=== PATIENT | male | born 1930 | race Caucasian/White ===

== ENCOUNTER 2016-12-30 18:40 | Emergency (ER) | payer MEDICARE, OTHER ==
--- NOTE | 2016-12-30 19:32 | EDM.PDOC ---
ED HPI GENERAL MEDICAL PROBLEM - General Chief Complaint: Genitourinary Problem Stated Complaint: BLOOD IN URINE Time Seen by Provider: 12/30/16 19:27 Source of Information: Reports: Patient, RN - History of Present Illness INITIAL COMMENTS - FREE TEXT/NARRATIVE: two episodes of painless hematuria today. no urinary hesitancy; some difficulty in stopping urine flow. - Related Data Allergies Allergy/AdvReac Type Severity Reaction Status Date / Time No Known Allergies Allergy Verified 12/30/16 19:06 Home Meds: Home Meds metFORMIN [Glucophage XR] 12/30/16 [History] Past Medical History Cardiovascular History: Reports: CAD, Stents. Denies: Arrhythmia Respiratory History: Denies: COPD Gastrointestinal History: Denies: Cirrhosis Genitourinary History: Denies: Chronic Renal Insuffiency, Dialysis Neurological History: Reports: Parkinson's. Denies: CVA Endocrine/Metabolic History: Denies: Diabetes, Type I, Diabetes, Type II Hematologic History: Denies: B12 Deficiency, Bleeding Disorder Oncologic (Cancer) History: Reports: None ED ROS GENERAL - Review of Systems Review Of Systems: See Below Constitutional: Denies: Fever, Chills, Malaise, Weakness HEENT: Denies: Dental Pain Respiratory: Denies: Shortness of Breath, Wheezing, Cough, Sputum Cardiovascular: Denies: Chest Pain GI/Abdominal: Denies: Abdominal Pain, Black Stool, Bloody Stool, Hematemesis, Hematochezia : Reports: Hematuria. Denies: Dysuria, Urinary Retention ED EXAM, RENAL/ - Physical Exam Exam: See Below General Appearance: Alert Head: Atraumatic Neck: Supple Respiratory/Chest: Lungs Clear Cardiovascular: Regular Rate, Rhythm GI/Abdominal: Soft, Non-Tender Back Exam: No: CVA Tenderness (L), CVA Tenderness (R) Comments: left parkinsonian tremor Course - Vital Signs Last Recorded V/S: Last Vital Signs Temp 97 F 12/30/16 19:05 Pulse 59 L 12/30/16 19:05 Resp 18 12/30/16 19:05 BP 129/75 12/30/16 19:05 Pulse Ox 97 12/30/16 19:05 - Orders/Labs/Meds Orders: Active Orders 24 hr Category Date Time Status Abdomen Pelvis wo Cont [CT] Stat Exams 12/30/16 21:03 Taken CULTURE URINE [RM] Stat Lab 12/30/16 19:20 Received Labs: Laboratory Tests 12/30/16 12/30/16 12/30/16 Range/Units 19:20 19:36 19:36 WBC 6.78 (4.0-11.0) K/uL RBC 3.67 L (4.50-5.90) M/uL Hgb 11.3 L (13.0-17.0) g/dL Hct 34.2 L (38.0-50.0) % MCV 93.2 (80.0-98.0) fL MCH 30.8 (27.0-32.0) pg MCHC 33.0 (31.0-37.0) g/dL RDW Std Deviation 48.0 (28.0-62.0) fl RDW Coeff of Mabel 14 (11.0-15.0) % Plt Count 282 (150-400) K/uL MPV 9.90 (7.40-12.00) fL Neut % (Auto) 67.3 (48.0-80.0) % Lymph % (Auto) 18.9 (16.0-40.0) % [place] % (Auto) 11.2 (0.0-15.0) % Eos % (Auto) 2.2 (0.0-7.0) % Baso % (Auto) 0.4 (0.0-1.5) % Neut # (Auto) 4.6 (1.4-5.7) K/uL Lymph # (Auto) 1.3 (0.6-2.4) K/uL [place] # (Auto) 0.8 (0.0-0.8) K/uL Eos # (Auto) 0.2 (0.0-0.7) K/uL Baso # (Auto) 0.0 (0.0-0.1) K/uL Nucleated RBC % 0.0 /100WBC Nucleated RBCs # 0 K/uL Sodium 139 (136-146) mmol/L Potassium 4.7 (3.5-5.1) mmol/L Chloride 108 (98-110) mmol/L Carbon Dioxide 20 L (21-31) mmol/L BUN 34 H (6.0-23.0) mg/dL Creatinine 2.3 H (0.6-1.5) mg/dL Est Cr Clr Drug Dosing TNP Estimated GFR (MDRD) 27.0 ml/min Glucose 110 (60-110) mg/dL Calcium 9.2 (8.8-10.8) mg/dL Total Bilirubin 0.3 (0.1-1.5) mg/dL AST 19 (5-40) IU/L ALT 7 L (8-54) IU/L Alkaline Phosphatase 105 (40-150) Total Protein 7.2 (6.0-8.0) g/dL Albumin 4.1 (3.4-4.8) g/dL Globulin 3.1 (2.0-3.5) g/dL Albumin/Globulin Ratio 1.3 (1.3-2.8) Urine Color RED Urine Appearance CLOUDY Urine pH 6.0 (5.0-8.0) Ur Specific [place] 1.020 (1.001-1.035) Urine Protein 100 (NEGATIVE) mg/dL Urine Glucose (UA) NEGATIVE (NEGATIVE) mg/dL Urine Ketones NEGATIVE (NEGATIVE) mg/dL Urine Occult Blood LARGE H (NEGATIVE) Urine Nitrite NEGATIVE (NEGATIVE) Urine Bilirubin NEGATIVE (NEGATIVE) Urine Urobilinogen 0.2 (<2.0) EU/dL Ur Leukocyte Esterase NEGATIVE (NEGATIVE) Urine RBC TOO NUMBEROUS TO CT (0-2/HPF) Urine WBC 1-3 (0-5/HPF) Ur Epithelial Cells RARE (NONE-FEW) Urine Bacteria 1+ H (NEGATIVE) - Re-Assessments/Exams Free Text/Narrative Re-Assessment/Exam: 12/30/16 22:08 I advised that he follow up [facility], with general surgery for colonoscopy and or proctoscopy follow up with urology tomorrow. I discussed with Dr Adam Gamboa we discussed pulmonary nodules. He is to follow up with the [facility] with copies of today's note and CT and lab reports I spoke with him regarding his asymptomatic cholelithiasis Departure - Departure Time of Disposition: 22:06 Disposition: Home, Self-Care 01 Condition: Fair Clinical Impression: Hematuria, Rectal abnormality, Prostate enlargement, Lesion of right elim ira kidney, Pulmonary nodules - Discharge Information Referrals: PCP,None [Primary Care Provider] - Forms: ED Department Discharge Additional Instructions: follow up with general surgeon for evaluation of rectal thickening within two weeks follow up with Dr Gamboa tomorrow regarding hematuria [facility] ; bring a copy of today's ER notes and lab and CT reports - My Orders Last 24 Hours: My Active Orders 12/30/16 19:20 CULTURE URINE [RM] Stat 12/30/16 21:03 Abdomen Pelvis wo Cont [CT] Stat - Assessment/Plan Last 24 Hours: My Active Orders 12/30/16 19:20 CULTURE URINE [RM] Stat 12/30/16 21:03 Abdomen Pelvis wo Cont [CT] Stat
[2016-12-30 20:07] LABS: CHLORIDE,CL 108 mmol/L (98-110); SODIUM,NA 139 mmol/L (136-146)
--- NOTE | 2016-12-31 11:54 | CT ---
EXAM DATE: 12/30/16 PATIENT'S AGE: 86 Patient: LEDY HARP Facility: [place], [place] Site . Site : 1930 Study: CT Abdomen/Pelvis [id number]/[id number] 9:27:18 PM Ordering Physician: Barb Martínez Final Report: INDICATION: Bright red stool TECHNIQUE: CT abdomen and pelvis without contrast. COMPARISON: None available FINDINGS: Lower chest: A 5 millimeter posteromedial right lower lobe nodule on image 29 and a 3 millimeter left lower lobe nodule on image 16. Mildly asymmetrical gynecomastia, right greater than left. Liver: Unremarkable. Spleen: Unremarkable. Pancreas: Unremarkable. Gallbladder and bile ducts: Cholelithiasis. Adrenal glands: Unremarkable. Kidneys: No hydronephrosis. An apparent punctate left renal parenchymal near calcific density which could be related to the wall of a lower pole cyst. Bilateral renal cysts. A 1.3 centimeter isodense right renal lower pole exophytic lesion, not well evaluated. No discrete ureteral calcifications. GI tract: No mechanical bowel obstruction. The appendix is not seen. Colonic diverticulosis without diverticulitis. Apparent irregular wall thickening along the anterior aspect of the distal rectum on images 139 -143. Vascular structures: Arthrosclerotic changes with mild eccentric right lateral infrarenal aortic aneurysm measuring up to 3.2 x 2.3 centimeters. Lymph nodes: Unremarkable. Miscellaneous: No significant free fluid or free air. Fat containing inguinal hernias, left greater than right. A 2.2 x 1.7 centimeter posterior subcutaneous low-density lesion at the level of the T12 spinous process, nonspecific. Pelvic Organs: An enlarged prostate, protruding into the bladder base. Bladder wall thickening. A small left lateral bladder wall diverticulum. Bones: Partial spinal ankylosis. IMPRESSION: Colonic diverticulosis without diverticulitis. No bowel obstruction or appendicitis. Apparent asymmetrical wall thickening in the anterior aspect of the rectum. Colonoscopic evaluation is recommended to exclude a focal lesion/ neoplasm. No obstructive uropathy. Renal cysts. An isodense right renal lesion is not well evaluated. Followup with mammography and/or postcontrast imaging. An enlarged prostate protruding into the bladder base. Bladder wall thickening is likely related to chronic outlet obstruction. Correlate with urinalysis to exclude superimposed cystitis. Small pulmonary nodules. If there are risk factors, or if otherwise clinically indicated, followup should be obtained. Dictated by Maynor Wang MD @ 12/30/2016 9:47:35 PM Dictated by: Maynor Wang MD @ 12/30/2016 21:47:52 (Electronic Signature) Report Signed by Proxy. CHITRA
== END 2016-12-30 22:20 | disposition home or self-care (01) ==
LOC: MW.ED 18:40
DX: N40.1 Benign prostatic hyperplasia with lower urinary tract symptoms (principal); R31.9 Hematuria, unspecified; Q43.9 Congenital malformation of intestine, unspecified; N28.9 Disorder of kidney and ureter, unspecified; R91.1 Solitary pulmonary nodule; Z79.84 Long term (current) use of oral hypoglycemic drugs
CPT/HCPCS: 36415; 74176; 74176-26; 80053; 81001; 85025; 87086; 99284; 99284-25

== ENCOUNTER 2017-03-06 16:10 | Inpatient (IN) | payer MEDICARE, OTHER ==
[2017-03-06] MEDS ORDERED: Sodium Chloride 0.9% 10 ML Syringe FLUSH PRN (16:28)
[2017-03-06] MEDS ORDERED: Sodium Chloride 0.9% 1,000 ML IV ONE (16:28)
[2017-03-06] MEDS ORDERED: Sodium Chloride 0.9% 2.5 ML Syringe FLUSH PRN (16:28)
--- NOTE | 2017-03-06 16:33 | EDM.PDOC ---
ED HPI GENERAL MEDICAL PROBLEM - General Chief Complaint: Cardiovascular Problem Stated Complaint: weakness Time Seen by Provider: 03/06/17 16:25 - History of Present Illness INITIAL COMMENTS - FREE TEXT/NARRATIVE: HISTORY AND PHYSICAL: History of present illness: Patient is an 87-year-old male who follows at the [place] [facility] and has a history of hypertension diabetes and a CABG in the past and presents after having a near syncopal event while at the ice cream shop at [facility]. He does not reside there and in fact that he did feel very good earlier but he wanted to visit his friend so he went over. He said that he was feeling generalized weakness and run down but no specific pain earlier today and he has had no recent fever chills chest pain shortness of breath URI symptomatology abdominal pain vomiting or diarrhea. The patient tells nursing that he has had some black stools recently which he did not admit to me. Patient says he is eating and drinking normally. Patient denies any current pain of any sort including abdominal pain chest pain extremity pain and has no head neck or back pain. He did not pass out or blackout with these events and is not dizzy or lightheaded. On arrival here via EMS he was feeling back to his baseline except for generalized weakness again. We obtained the medical list of medications from the [place] clinic may do include medications for hypertension his tremor of his left hand he is on Plavix is on cholesterol medication thyroid medication and oral hypoglycemics Review of systems: As per history of present illness and below otherwise all systems reviewed and negative. Past medical history: As per history of present illness and as reviewed below otherwise noncontributory. Surgical history: As per history of present illness and as reviewed below otherwise noncontributory. Social history: No reported history of drug or alcohol abuse. Family history: As per history of present illness and as reviewed below otherwise noncontributory. Physical exam: Gen.: Well-developed well-nourished man who is speaking clearly and easily in the ED and mentating appropriately. Vital signs have been reviewed by me including his hypotension. He is not diaphoretic but he overall looks very pale. HEENT: Atraumatic, normocephalic, pupils reactive, negative for scleral icterus , but the conjunctiva are slightly pale and the mucous membranes are tacky throat clear, neck supple, nontender, trachea midline. Lungs: Clear to auscultation, breath sounds equal bilaterally, chest nontender. No worker breathing Heart: S1S2, regular rhythm and tachycardic rate on my evaluation, negative for clicks, rubs, or JVD. Abdomen: Soft, nondistended, nontender. Negative for masses or hepatosplenomegaly. Negative for costovertebral tenderness. Pelvis: Stable nontender. Genitourinary: Deferred. Rectal: Normal tone no masses and there is brown stool in the vault which is Hemoccult positive and no gross blood Extremities: Atraumatic, negative for cords or calf pain. Neurovascular unremarkable. No pedal edema or leg asymmetry and patient has full range of motion without defects or deficits Neuro: Awake, alert, oriented. Cranial nerves II through XII unremarkable. Cerebellum unremarkable. Motor and sensory unremarkable throughout. Exam nonfocal. Patient is noted to have a fine tremor of the left thumb and index finger which she says is old Skin: Globally pale but no diaphoresis skin rashes or lesions Diagnostics: EKG CBC CMP INR troponin influenza swab UA urine culture if indicated CT scan of the head one view chest x-ray Therapeutics: IV O2 monitor IV fluids and Protonix bolus and drip Patient is unsure of his med list so we will attempt to get that from the [place] [facility]. Patient says he does take some kind of blood thinner but it is not Coumadin She told nursing that he was having black stools episodically over the last few days and when I asked him about this he said that this is true and that he had very black stool yesterday not this morning. He has never had any GI history like this. On my evaluation it is as above with brown stool which is Hemoccult positive 1745: Repeat blood pressure is 96/55 and heart rate is 111 and patient overall feels significantly improved. He still continues to have no complaints of chest pain shortness of breath abdominal pain or neurosensory changes. His labs from today have been compared to those performed December 30 and his hemoglobin today is 10.4 compared to the hemoglobin of 11.3 in December and his BUN and creatinine are increased at the BUN of 54 today compared to 34 and December and 2.7 as compared to 2.3 in December. I will discuss this case with Dr. Maxwell and plan for admission as near syncope with hypotension/tachycardia and history of black stools with probable upper GI bleed. His elevated BUN as well as potassium would be indicative of a recent GI bleed. 180: Case was discussed with our hospitalist Dr. Maxwell who agrees with Protonix bolus and drip and telemetry admission. He is aware that we are currently awaiting the results of the CT scan chest x-ray and the patient is not given a urine sample and he is also aware of her his most recent vital signs. I will discuss all testing results with the patient and family at bedside Impression: Near syncopal event, history of black stools rule out GI bleed, hypotension and tachycardia improving Definitive disposition and diagnosis as appropriate pending reevaluation and review of above. - Related Data Allergies Allergy/AdvReac Type Severity Reaction Status Date / Time No Known Allergies Allergy Verified 03/06/17 16:22 Home Meds: Home Meds Atenolol 25 mg PO DAILY 03/06/17 [History] Carbidopa/Levodopa [Carbidopa-Levodopa 25-100 Tab] 1 tab PO QID 03/06/17 [ History] Carboxymethylcell/Hypromellose [[facility] Lubricant Gel Eye Drops] 1 drop OP QID PRN 03/06/17 [History] Citalopram [Celexa] 20 mg PO DAILY 03/06/17 [History] Clopidogrel [Plavix] 75 mg PO DAILY 03/06/17 [History] Fish Oil/[place]-3 Fatty Acids [Fish Oil] 1 gm PO BID 03/06/17 [History] Gemfibrozil 600 mg PO BID 03/06/17 [History] Hydrochlorothiazide 25 mg PO DAILY 03/06/17 [History] Levothyroxine 25 mcg PO ACBREAKFAST 03/06/17 [History] Losartan [Cozaar] 25 mg PO DAILY 03/06/17 [History] Methylcellulose [Fiber] 500 mg PO DAILY 03/06/17 [History] Nitroglycerin 0.4 mg SL Q5M PRN MDD 3 03/06/17 [History] Pantoprazole [ProTONIX] 40 mg PO ACBREAKFAST 03/06/17 [History] Potassium Chloride [Klor-Con M20] 20 meq PO DAILY 03/06/17 [History] atorvaSTATin [Lipitor] 40 mg PO BEDTIME 03/06/17 [History] metFORMIN HCl [Metformin HCl ER] 500 mg PO BID 03/06/17 [History] Past Medical History - Past Health History Medical/Surgical History: Denies Medical/Surgical History HEENT History: Reports: Impaired Vision Other HEENT History: wears glasses Cardiovascular History: Reports: CAD, Stents Neurological History: Reports: Parkinson's Endocrine/Metabolic History: Reports: Diabetes, Type II Oncologic (Cancer) History: Reports: None Social & Family History - Family History Family Medical History: Noncontributory - Tobacco Use Smoking Status *Q: Never Smoker - Recreational Drug Use Recreational Drug Use: No ED ROS GENERAL - Review of Systems Review Of Systems: ROS reveals no pertinent complaints other than HPI. ED EXAM, GENERAL - Physical Exam Exam: See Below (See dictation) Course - Vital Signs Last Recorded V/S: Last Vital Signs Temp 37.7 C 03/06/17 16:22 Pulse 116 H 03/06/17 16:22 Resp 18 03/06/17 16:22 BP 83/50 L 03/06/17 16:22 Pulse Ox 96 03/06/17 16:22 - Orders/Labs/Meds Orders: Active Orders 24 hr Category Date Time Status Patient Status [ADT] Stat ADT 03/06/17 18:04 Ordered Blood Glucose Check, Bedside [RC] ONETIME Care 03/06/17 16:27 Active Cardiac Monitoring [RC] . DIRECTED Care 03/06/17 16:27 Active EKG Documentation Completion [RC] STAT Care 03/06/17 16:27 Active Oxygen Therapy, ED [RC] ASDIRECTED Care 03/06/17 16:27 Active Pulse Oximetry [RC] ASDIRECTED Care 03/06/17 16:27 Active Chest 1V Frontal [CR] Stat Exams 03/06/17 16:28 Taken Head wo Cont [CT] Stat Exams 03/06/17 16:28 Taken TYPE AND SCREEN [BBK] Stat Lab 03/06/17 16:49 Received UA W/MICROSCOPIC [URIN] Stat Lab 03/06/17 16:27 Uncollected Pantoprazole [ProTONIX IV] 80 mg Med 03/06/17 18:15 Active Sodium Chloride 0.9% [Normal Saline] 100 ml IV .Continuous Sodium Chloride 0.9% [Saline Flush] Med 03/06/17 16:28 Active 10 ml FLUSH ASDIRECTED PRN Sodium Chloride 0.9% [Saline Flush] Med 01/04/18 16:28 Active 2.5 ml FLUSH ASDIRECTED PRN Saline Lock Insert [OM.PC] Stat Oth 03/06/17 16:27 Ordered Medication Orders Pantoprazole Sodium 80 mg/ (Sodium Chloride) 100 mls @ 10 mls/hr IV .Continuous ROBERT Sodium Chloride (Saline Flush) 10 ml FLUSH ASDIRECTED PRN PRN Reason: Keep Vein Open Sodium Chloride (Saline Flush) 2.5 ml FLUSH ASDIRECTED PRN PRN Reason: Keep Vein Open Labs: Laboratory Tests 03/06/17 03/06/17 03/06/17 Range/Units 16:49 16:49 16:49 WBC 7.90 (4.0-11.0) K/uL RBC 3.35 L (4.50-5.90) M/uL Hgb 10.4 L (13.0-17.0) g/dL Hct 31.9 L (38.0-50.0) % MCV 95.2 (80.0-98.0) fL MCH 31.0 (27.0-32.0) pg MCHC 32.6 (31.0-37.0) g/dL RDW Std Deviation 48.5 (28.0-62.0) fl RDW Coeff of Mabel 14 (11.0-15.0) % Plt Count 260 (150-400) K/uL MPV 9.90 (7.40-12.00) fL Neut % (Auto) 68.7 (48.0-80.0) % Lymph % (Auto) 18.9 (16.0-40.0) % [place] % (Auto) 11.1 (0.0-15.0) % Eos % (Auto) 1.0 (0.0-7.0) % Baso % (Auto) 0.3 (0.0-1.5) % Neut # (Auto) 5.4 (1.4-5.7) K/uL Lymph # (Auto) 1.5 (0.6-2.4) K/uL [place] # (Auto) 0.9 H (0.0-0.8) K/uL Eos # (Auto) 0.1 (0.0-0.7) K/uL Baso # (Auto) 0.0 (0.0-0.1) K/uL Nucleated RBC % 0.0 /100WBC Nucleated RBCs # 0 K/uL INR 1.02 (0.86-1.11) Sodium 138 (136-146) mmol/L Potassium 5.8 H (3.5-5.1) mmol/L Chloride 114 H (98-110) mmol/L Carbon Dioxide 14 L (21-31) mmol/L BUN 54 H (6.0-23.0) mg/dL Creatinine 2.7 H (0.6-1.5) mg/dL Est Cr Clr Drug Dosing 20.14 mL/min Estimated GFR (MDRD) 22.4 ml/min Glucose 106 (60-110) mg/dL Calcium 8.2 L (8.8-10.8) mg/dL Total Bilirubin 0.3 (0.1-1.5) mg/dL AST 13 (5-40) IU/L ALT < 6 L (8-54) IU/L Alkaline Phosphatase 97 (40-150) Troponin I < 0.10 (0.0-0.29) NG/ML Total Protein 6.2 (6.0-8.0) g/dL Albumin 3.8 (3.4-4.8) g/dL Globulin 2.4 (2.0-3.5) g/dL Albumin/Globulin Ratio 1.6 (1.3-2.8) Meds: Medications Generic Name Dose Route Start Last Admin Trade Name Freq PRN Reason Stop Dose Admin Pantoprazole Sodium 80 mg/ 100 mls @ 10 mls/hr 03/06/17 18:15 Sodium Chloride IV .Continuous ROBERT Sodium Chloride 10 ml 03/06/17 16:28 Saline Flush FLUSH ASDIRECTED PRN Keep Vein Open Sodium Chloride 2.5 ml 03/06/17 16:28 Saline Flush FLUSH ASDIRECTED PRN Keep Vein Open Discontinued Medications Generic Name Dose Route Start Last Admin Trade Name Freq PRN Reason Stop Dose Admin Sodium Chloride 1,000 mls @ 999 mls/hr 03/06/17 16:28 03/06/17 16:15 Normal Saline IV 03/06/17 17:28 999 mls/hr STAT ONE Administration Pantoprazole Sodium 80 mg 03/06/17 17:42 Protonix Iv IVPUSH 03/06/17 17:43 .BOLUS ONE Departure - Departure Time of Disposition: 18:07 Disposition: Admitted As Inpatient 65 Condition: Good Clinical Impression: Near syncope, Upper GI bleed Hypotension Qualifiers: Hypotension type: unspecified hypotension type Qualified Code(s): I95.9 - Hypotension, unspecified Referrals: PCP,None [Primary Care Provider] - Forms: ED Department Discharge - My Orders Last 24 Hours: My Active Orders 03/06/17 16:27 Blood Glucose Check, Bedside [RC] ONETIME Cardiac Monitoring [RC] . DIRECTED EKG Documentation Completion [RC] STAT Oxygen Therapy, ED [RC] ASDIRECTED Pulse Oximetry [RC] ASDIRECTED UA W/MICROSCOPIC [URIN] Stat Saline Lock Insert [OM.PC] Stat 03/06/17 16:28 Chest 1V Frontal [CR] Stat Head wo Cont [CT] Stat Sodium Chloride 0.9% [Saline Flush] 10 ml FLUSH ASDIRECTED PRN Sodium Chloride 0.9% [Saline Flush] 2.5 ml FLUSH ASDIRECTED PRN 03/06/17 16:49 TYPE AND SCREEN [BBK] Stat 03/06/17 18:04 Patient Status [ADT] Stat 03/06/17 18:15 Pantoprazole [ProTONIX IV] 80 mg Sodium Chloride 0.9% [Normal Saline] 100 ml IV .Continuous - Assessment/Plan Last 24 Hours: My Active Orders 03/06/17 16:27 Blood Glucose Check, Bedside [RC] ONETIME Cardiac Monitoring [RC] . DIRECTED EKG Documentation Completion [RC] STAT Oxygen Therapy, ED [RC] ASDIRECTED Pulse Oximetry [RC] ASDIRECTED UA W/MICROSCOPIC [URIN] Stat Saline Lock Insert [OM.PC] Stat 03/06/17 16:28 Chest 1V Frontal [CR] Stat Head wo Cont [CT] Stat Sodium Chloride 0.9% [Saline Flush] 10 ml FLUSH ASDIRECTED PRN Sodium Chloride 0.9% [Saline Flush] 2.5 ml FLUSH ASDIRECTED PRN 03/06/17 16:49 TYPE AND SCREEN [BBK] Stat 03/06/17 18:04 Patient Status [ADT] Stat 03/06/17 18:15 Pantoprazole [ProTONIX IV] 80 mg Sodium Chloride 0.9% [Normal Saline] 100 ml IV .Continuous
[2017-03-06 17:25] LABS: CHLORIDE,CL 114 mmol/L (98-110); SODIUM,NA 138 mmol/L (136-146)
[2017-03-06] MEDS ORDERED: Pantoprazole 40 MG Vial IVPUSH ONE (17:42)
[2017-03-06] MEDS: Pantoprazole 80 MG in Sodium Chloride 0.9% 100 ML IV SCH (19:48)
[2017-03-06] MEDS ORDERED: Ondansetron 4 MG/2 ML SDV IVPUSH PRN (19:49)
--- NOTE | 2017-03-06 19:58 | PCM.HP ---
H&P History of Present Illness - General Admit Problem/Dx: Admission Diagnosis/Problem Admission Diagnosis/Problem Syncope - History of Present Illness Initial Comments - Free Text/Narative: 87 yo male with pmh of DM, CAD, CABG who presents to the ED with complaint of dizziness and near syncopy while at the ice cream shop at [facility]. He reports having black stools earlier this week. He denies any fevers, chills , shortness of breath, or chest pain. In the ED he was noted to have HR of 111 in sinus tach and BP of 96/95. He was given IV fluids and started on a protonix drip. - Related Data Allergies/Adverse Reactions: Allergies Allergy/AdvReac Type Severity Reaction Status Date / Time No Known Allergies Allergy Verified 03/06/17 16:22 Home Medications: Home Meds Atenolol 25 mg PO DAILY 03/06/17 [History] Carbidopa/Levodopa [Carbidopa-Levodopa 25-100 Tab] 1 tab PO QID 03/06/17 [ History] Carboxymethylcell/Hypromellose [[facility] Lubricant Gel Eye Drops] 1 drop OP QID PRN 03/06/17 [History] Citalopram [Celexa] 20 mg PO DAILY 03/06/17 [History] Clopidogrel [Plavix] 75 mg PO DAILY 03/06/17 [History] Fish Oil/[place]-3 Fatty Acids [Fish Oil] 1 gm PO BID 03/06/17 [History] Gemfibrozil 600 mg PO BID 03/06/17 [History] Hydrochlorothiazide 25 mg PO DAILY 03/06/17 [History] Levothyroxine 25 mcg PO ACBREAKFAST 03/06/17 [History] Losartan [Cozaar] 25 mg PO DAILY 03/06/17 [History] Methylcellulose [Fiber] 500 mg PO DAILY 03/06/17 [History] Nitroglycerin 0.4 mg SL Q5M PRN MDD 3 03/06/17 [History] Pantoprazole [ProTONIX] 40 mg PO ACBREAKFAST 03/06/17 [History] Potassium Chloride [Klor-Con M20] 20 meq PO DAILY 03/06/17 [History] atorvaSTATin [Lipitor] 40 mg PO BEDTIME 03/06/17 [History] metFORMIN HCl [Metformin HCl ER] 500 mg PO BID 03/06/17 [History] Past Medical History - Past Health History Medical/Surgical History: Denies Medical/Surgical History HEENT History: Reports: Impaired Vision Other HEENT History: wears glasses Cardiovascular History: Reports: CAD, Stents Neurological History: Reports: Parkinson's Endocrine/Metabolic History: Reports: Diabetes, Type II Oncologic (Cancer) History: Reports: None Social & Family History - Family History Family Medical History: Noncontributory - Tobacco Use Smoking Status *Q: Never Smoker - Recreational Drug Use Recreational Drug Use: No H&P Review of Systems - Review of Systems: Review Of Systems: ROS reveals no pertinent complaints other than HPI. Exam - Exam Exam: See Below - Vital Signs Vital Signs: Last Vital Signs Temp 37.7 C 03/06/17 16:22 Pulse 113 H 03/06/17 18:30 Resp 18 03/06/17 17:00 BP 96/65 03/06/17 18:30 Pulse Ox 96 03/06/17 17:45 Weight: 83.915 kg - Exam General: Alert, Oriented HEENT: Mucosa Moist & Odin Lungs: Clear to Auscultation, Normal Respiratory Effort Cardiovascular: Regular Rhythm, Tachycardia GI/Abdominal Exam: Soft, Non-Tender Extremities: Non-Tender, No Pedal Edema Skin: Warm, Dry, Intact - Patient Data Lab Results Last 24 hrs: Laboratory Results - last 24 hr 03/06/17 03/06/17 03/06/17 Range/Units 16:49 16:49 16:49 WBC 7.90 (4.0-11.0) K/uL RBC 3.35 L (4.50-5.90) M/uL Hgb 10.4 L (13.0-17.0) g/dL Hct 31.9 L (38.0-50.0) % MCV 95.2 (80.0-98.0) fL MCH 31.0 (27.0-32.0) pg MCHC 32.6 (31.0-37.0) g/dL RDW Std Deviation 48.5 (28.0-62.0) fl RDW Coeff of Mabel 14 (11.0-15.0) % Plt Count 260 (150-400) K/uL MPV 9.90 (7.40-12.00) fL Neut % (Auto) 68.7 (48.0-80.0) % Lymph % (Auto) 18.9 (16.0-40.0) % [place] % (Auto) 11.1 (0.0-15.0) % Eos % (Auto) 1.0 (0.0-7.0) % Baso % (Auto) 0.3 (0.0-1.5) % Neut # (Auto) 5.4 (1.4-5.7) K/uL Lymph # (Auto) 1.5 (0.6-2.4) K/uL [place] # (Auto) 0.9 H (0.0-0.8) K/uL Eos # (Auto) 0.1 (0.0-0.7) K/uL Baso # (Auto) 0.0 (0.0-0.1) K/uL Nucleated RBC % 0.0 /100WBC Nucleated RBCs # 0 K/uL INR 1.02 (0.86-1.11) Sodium 138 (136-146) mmol/L Potassium 5.8 H (3.5-5.1) mmol/L Chloride 114 H (98-110) mmol/L Carbon Dioxide 14 L (21-31) mmol/L BUN 54 H (6.0-23.0) mg/dL Creatinine 2.7 H (0.6-1.5) mg/dL Est Cr Clr Drug Dosing 20.14 mL/min Estimated GFR (MDRD) 22.4 ml/min Glucose 106 (60-110) mg/dL Calcium 8.2 L (8.8-10.8) mg/dL Total Bilirubin 0.3 (0.1-1.5) mg/dL AST 13 (5-40) IU/L ALT < 6 L (8-54) IU/L Alkaline Phosphatase 97 (40-150) Troponin I < 0.10 (0.0-0.29) NG/ML Total Protein 6.2 (6.0-8.0) g/dL Albumin 3.8 (3.4-4.8) g/dL Globulin 2.4 (2.0-3.5) g/dL Albumin/Globulin Ratio 1.6 (1.3-2.8) Blood Type Antibody Screen 03/06/17 Range/Units 16:49 WBC (4.0-11.0) K/uL RBC (4.50-5.90) M/uL Hgb (13.0-17.0) g/dL Hct (38.0-50.0) % MCV (80.0-98.0) fL MCH (27.0-32.0) pg MCHC (31.0-37.0) g/dL RDW Std Deviation (28.0-62.0) fl RDW Coeff of Mabel (11.0-15.0) % Plt Count (150-400) K/uL MPV (7.40-12.00) fL Neut % (Auto) (48.0-80.0) % Lymph % (Auto) (16.0-40.0) % [place] % (Auto) (0.0-15.0) % Eos % (Auto) (0.0-7.0) % Baso % (Auto) (0.0-1.5) % Neut # (Auto) (1.4-5.7) K/uL Lymph # (Auto) (0.6-2.4) K/uL [place] # (Auto) (0.0-0.8) K/uL Eos # (Auto) (0.0-0.7) K/uL Baso # (Auto) (0.0-0.1) K/uL Nucleated RBC % /100WBC Nucleated RBCs # K/uL INR (0.86-1.11) Sodium (136-146) mmol/L Potassium (3.5-5.1) mmol/L Chloride (98-110) mmol/L Carbon Dioxide (21-31) mmol/L BUN (6.0-23.0) mg/dL Creatinine (0.6-1.5) mg/dL Est Cr Clr Drug Dosing mL/min Estimated GFR (MDRD) ml/min Glucose (60-110) mg/dL Calcium (8.8-10.8) mg/dL Total Bilirubin (0.1-1.5) mg/dL AST (5-40) IU/L ALT (8-54) IU/L Alkaline Phosphatase (40-150) Troponin I (0.0-0.29) NG/ML Total Protein (6.0-8.0) g/dL Albumin (3.4-4.8) g/dL Globulin (2.0-3.5) g/dL Albumin/Globulin Ratio (1.3-2.8) Blood Type O POSITIVE Antibody Screen NEGATIVE Result Diagrams: 03/06/17 16:49 03/06/17 16:49 Paddy Results Last 24 hrs: Microbiology 03/06/17 16:49 Influenza Type A Antigen Screen - Final Nasopharyngeal Swab NEGATIVE INFLUENZA A VIRUS AG Influenza Type B Antigen Screen - Final NEGATIVE INFLUENZA B VIRUS AG *Q Meaningful Use (ADM) - VTE *Q VTE Criteria *Q: - Stroke *Q Stroke Criteria *Q: - AMI *Q AMI Criteria *Q: Problem List Initiated/Reviewed/Updated: Yes Orders Last 24hrs: Active Orders 24 hr Category Date Time Status Patient Status [ADT] Stat ADT 03/06/17 18:04 Active Antiembolic Devices [RC] PER UNIT ROUTINE Care 03/06/17 19:51 Ordered Blood Glucose Check, Bedside [RC] ONETIME Care 03/06/17 16:27 Active Cardiac Monitoring [RC] . DIRECTED Care 03/06/17 16:27 Active EKG Documentation Completion [RC] STAT Care 03/06/17 16:27 Active Oxygen Therapy [RC] PRN Care 03/06/17 19:49 Ordered Oxygen Therapy, ED [RC] ASDIRECTED Care 03/06/17 16:27 Active Pulse Oximetry [RC] ASDIRECTED Care 03/06/17 16:27 Active Up ad Natalie [RC] ASDIRECTED Care 03/06/17 19:49 Ordered VTE/DVT Education [RC] PER UNIT ROUTINE Care 03/06/17 19:49 Ordered Vital Signs [RC] Q4H Care 03/06/17 19:49 Ordered Nothing per Oral Now Diet [DIET] Diet 03/06/17 Breakfast Ordered Chest 1V Frontal [CR] Stat Exams 03/06/17 16:28 Taken Head wo Cont [CT] Stat Exams 03/06/17 16:28 Taken BASIC METABOLIC PANEL,BMP [CHEM] AM Lab 03/07/17 05:11 Ordered CBC W/O DIFF,HEMOGRAM [HEME] Routine Lab 03/07/17 03:00 Ordered CBC WITH AUTO DIFF [HEME] AM Lab 03/07/17 05:11 Ordered UA W/MICROSCOPIC [URIN] Stat Lab 03/06/17 16:27 Uncollected Carbidopa/Levodopa [Sinemet 25-100 mg] Med 03/07/17 00:00 Ordered 1 tab PO QID Ondansetron [Zofran] Med 03/06/17 19:49 Ordered 4 mg IVPUSH Q4H PRN Pantoprazole [ProTONIX IV] 80 mg Med 03/06/17 18:15 Active Sodium Chloride 0.9% [Normal Saline] 100 ml IV .Continuous Sodium Chloride 0.9% @ 125 MLS/HR (1000ml) Med 03/06/17 20:00 Ordered Sodium Chloride 0.9% [Normal Saline] 1,000 ml IV ASDIRECTED Sodium Chloride 0.9% [Saline Flush] Med 03/06/17 16:28 Active 10 ml FLUSH ASDIRECTED PRN Sodium Chloride 0.9% [Saline Flush] Med 03/06/17 16:28 Active 2.5 ml FLUSH ASDIRECTED PRN atorvaSTATin [Lipitor] Med 03/06/17 21:00 Ordered 40 mg PO BEDTIME Saline Lock Insert [OM.PC] Stat Oth 03/06/17 16:27 Ordered Sequential Compression Device [OM.PC] Per Unit Routine Oth 03/06/17 19:50 Ordered Resuscitation Status Routine Resus Stat 03/06/17 19:49 Ordered Medication Orders Atorvastatin Calcium (Lipitor) 40 mg PO BEDTIME ROBERT Carbidopa/Levodopa (Sinemet 25-100 Mg) 1 tab PO QID ROBERT Pantoprazole Sodium 80 mg/ (Sodium Chloride) 100 mls @ 10 mls/hr IV .Continuous ROBERT Last Admin: 03/06/17 19:48 Dose: 10 mls/hr Sodium Chloride (Saline Flush) 10 ml FLUSH ASDIRECTED PRN PRN Reason: Keep Vein Open Sodium Chloride (Saline Flush) 2.5 ml FLUSH ASDIRECTED PRN PRN Reason: Keep Vein Open Assessment/Plan Comment:: 87 yo male who presents with near syncope, his history of black stools and tachycardia are concerning for GI bleed. Patient currently does not appear toxic or in shock. We will treat with protonix drip, resuscitate with IV fluids , and trend Hgb.
[2017-03-06] MEDS: Insulin Aspart 100 Units/ML 3 ML Pen SUBCUT SCH (21:45)
[2017-03-06] MEDS: atorvaSTATin 40 MG Tab PO SCH (21:46)
[2017-03-06] MEDS ORDERED: Magnesium Sulfate/Water 4 GM in Premix Bag 1 BAG IV ONE (22:19)
[2017-03-07] MEDS: Carbidopa/Levodopa 25-100 MG Tab PO SCH ×4 (00:33→17:32)
[2017-03-07] MEDS: Insulin Aspart 100 Units/ML 3 ML Pen SUBCUT SCH ×4 (02:15→18:15)
[2017-03-07] MEDS: Pantoprazole 80 MG in Sodium Chloride 0.9% 100 ML IV SCH (06:14)
[2017-03-07] MEDS: Sodium Chloride 0.9% 1,000 ML IV SCH ×2 (09:59→18:14)
--- NOTE | 2017-03-07 10:26 | PCM.PN ---
- General Info Date of Service: 03/07/17 Admission Dx/Problem (Free Text): Admission Diagnosis/Problem Admission Diagnosis/Problem Syncope Subjective Update: 87 year old male with history of CAD s/p PCI in August 2016 admitted for near syncope and melena. Near syncope occurred yesterday while he was pushing his friends wheel chair. His melena occurred once two days ago and once the day before that. He has not had another bowel movement since then. He denies any abdominal pain, nausea, vomiting. He was placed on tele at admission and has been having intermittent runs of Torsades. He denies any chest pain, palpitations or sob during these episodes. His initial EKG from the ED had normal QTc - Review of Systems General: Reports: No Symptoms HEENT: Reports: No Symptoms Pulmonary: Reports: No Symptoms Cardiovascular: Reports: No Symptoms Gastrointestinal: Reports: Melena Genitourinary: Reports: No Symptoms Musculoskeletal: Reports: No Symptoms Skin: Reports: No Symptoms Neurological: Reports: No Symptoms Psychiatric: Reports: No Symptoms - Patient Data Vitals - Most Recent: Last Vital Signs Temp 36.6 C 03/07/17 08:00 Pulse 60 03/07/17 08:00 Resp 16 03/07/17 08:00 BP 118/51 L 03/07/17 08:00 Pulse Ox 97 03/07/17 08:00 Weight - Most Recent: 83.915 kg I&O - Last 24 Hours: Intake & Output 03/06/17 03/07/17 03/07/17 22:59 06:59 14:59 Intake Total 268 Output Total 700 Balance -432 Lab Results Last 24 Hours: Laboratory Results - last 24 hr 03/06/17 03/06/17 03/07/17 Range/Units 20:40 21:44 01:26 WBC (4.0-11.0) K/uL RBC (4.50-5.90) M/uL Hgb (13.0-17.0) g/dL Hct (38.0-50.0) % MCV (80.0-98.0) fL MCH (27.0-32.0) pg MCHC (31.0-37.0) g/dL RDW Std Deviation (28.0-62.0) fl RDW Coeff of Mabel (11.0-15.0) % Plt Count (150-400) K/uL MPV (7.40-12.00) fL Neut % (Auto) (48.0-80.0) % Lymph % (Auto) (16.0-40.0) % [place] % (Auto) (0.0-15.0) % Eos % (Auto) (0.0-7.0) % Baso % (Auto) (0.0-1.5) % Neut # (Auto) (1.4-5.7) K/uL Lymph # (Auto) (0.6-2.4) K/uL [place] # (Auto) (0.0-0.8) K/uL Eos # (Auto) (0.0-0.7) K/uL Baso # (Auto) (0.0-0.1) K/uL Nucleated RBC % /100WBC Nucleated RBCs # K/uL Sodium (136-146) mmol/L Potassium (3.5-5.1) mmol/L Chloride (98-110) mmol/L Carbon Dioxide (21-31) mmol/L BUN (6.0-23.0) mg/dL Creatinine (0.6-1.5) mg/dL Est Cr Clr Drug Dosing mL/min Estimated GFR (MDRD) ml/min Glucose (60-110) mg/dL POC Glucose 89 79 (60-110) mg/dL Calcium (8.8-10.8) mg/dL Urine Color YELLOW Urine Appearance CLEAR Urine pH 5.5 (5.0-8.0) Ur Specific [place] 1.020 (1.001-1.035) Urine Protein NEGATIVE (NEGATIVE) mg/dL Urine Glucose (UA) NEGATIVE (NEGATIVE) mg/dL Urine Ketones NEGATIVE (NEGATIVE) mg/dL Urine Occult Blood NEGATIVE (NEGATIVE) Urine Nitrite NEGATIVE (NEGATIVE) Urine Bilirubin NEGATIVE (NEGATIVE) Urine Urobilinogen 0.2 (<2.0) EU/dL Ur Leukocyte Esterase SMALL (NEGATIVE) Urine RBC 0-1 (0-2/HPF) Urine WBC 2-4 (0-5/HPF) Ur Epithelial Cells RARE (NONE-FEW) Urine Bacteria FEW (NEGATIVE) 03/07/17 03/07/17 03/07/17 Range/Units 03:10 05:18 05:18 WBC 6.11 6.02 (4.0-11.0) K/uL RBC 3.07 L 3.11 L (4.50-5.90) M/uL Hgb 9.6 L 9.7 L (13.0-17.0) g/dL Hct 29.2 L 29.6 L (38.0-50.0) % MCV 95.1 95.2 (80.0-98.0) fL MCH 31.3 31.2 (27.0-32.0) pg MCHC 32.9 32.8 (31.0-37.0) g/dL RDW Std Deviation 48.1 48.4 (28.0-62.0) fl RDW Coeff of Mabel 14 14 (11.0-15.0) % Plt Count 225 232 (150-400) K/uL MPV 9.70 9.70 (7.40-12.00) fL Neut % (Auto) 64.6 (48.0-80.0) % Lymph % (Auto) 21.6 (16.0-40.0) % [place] % (Auto) 12.0 (0.0-15.0) % Eos % (Auto) 1.3 (0.0-7.0) % Baso % (Auto) 0.5 (0.0-1.5) % Neut # (Auto) 3.9 (1.4-5.7) K/uL Lymph # (Auto) 1.3 (0.6-2.4) K/uL [place] # (Auto) 0.7 (0.0-0.8) K/uL Eos # (Auto) 0.1 (0.0-0.7) K/uL Baso # (Auto) 0.0 (0.0-0.1) K/uL Nucleated RBC % 0.0 0.0 /100WBC Nucleated RBCs # 0 0 K/uL Sodium 139 (136-146) mmol/L Potassium 5.4 H (3.5-5.1) mmol/L Chloride 116 H (98-110) mmol/L Carbon Dioxide 16 L (21-31) mmol/L BUN 50 H (6.0-23.0) mg/dL Creatinine 2.4 H (0.6-1.5) mg/dL Est Cr Clr Drug Dosing 22.57 mL/min Estimated GFR (MDRD) 25.7 ml/min Glucose 85 (60-110) mg/dL POC Glucose (60-110) mg/dL Calcium 8.7 L (8.8-10.8) mg/dL Urine Color Urine Appearance Urine pH (5.0-8.0) Ur Specific [place] (1.001-1.035) Urine Protein (NEGATIVE) mg/dL Urine Glucose (UA) (NEGATIVE) mg/dL Urine Ketones (NEGATIVE) mg/dL Urine Occult Blood (NEGATIVE) Urine Nitrite (NEGATIVE) Urine Bilirubin (NEGATIVE) Urine Urobilinogen (<2.0) EU/dL Ur Leukocyte Esterase (NEGATIVE) Urine RBC (0-2/HPF) Urine WBC (0-5/HPF) Ur Epithelial Cells (NONE-FEW) Urine Bacteria (NEGATIVE) 03/07/17 Range/Units 06:18 WBC (4.0-11.0) K/uL RBC (4.50-5.90) M/uL Hgb (13.0-17.0) g/dL Hct (38.0-50.0) % MCV (80.0-98.0) fL MCH (27.0-32.0) pg MCHC (31.0-37.0) g/dL RDW Std Deviation (28.0-62.0) fl RDW Coeff of Mabel (11.0-15.0) % Plt Count (150-400) K/uL MPV (7.40-12.00) fL Neut % (Auto) (48.0-80.0) % Lymph % (Auto) (16.0-40.0) % [place] % (Auto) (0.0-15.0) % Eos % (Auto) (0.0-7.0) % Baso % (Auto) (0.0-1.5) % Neut # (Auto) (1.4-5.7) K/uL Lymph # (Auto) (0.6-2.4) K/uL [place] # (Auto) (0.0-0.8) K/uL Eos # (Auto) (0.0-0.7) K/uL Baso # (Auto) (0.0-0.1) K/uL Nucleated RBC % /100WBC Nucleated RBCs # K/uL Sodium (136-146) mmol/L Potassium (3.5-5.1) mmol/L Chloride (98-110) mmol/L Carbon Dioxide (21-31) mmol/L BUN (6.0-23.0) mg/dL Creatinine (0.6-1.5) mg/dL Est Cr Clr Drug Dosing mL/min Estimated GFR (MDRD) ml/min Glucose (60-110) mg/dL POC Glucose 78 (60-110) mg/dL Calcium (8.8-10.8) mg/dL Urine Color Urine Appearance Urine pH (5.0-8.0) Ur Specific [place] (1.001-1.035) Urine Protein (NEGATIVE) mg/dL Urine Glucose (UA) (NEGATIVE) mg/dL Urine Ketones (NEGATIVE) mg/dL Urine Occult Blood (NEGATIVE) Urine Nitrite (NEGATIVE) Urine Bilirubin (NEGATIVE) Urine Urobilinogen (<2.0) EU/dL Ur Leukocyte Esterase (NEGATIVE) Urine RBC (0-2/HPF) Urine WBC (0-5/HPF) Ur Epithelial Cells (NONE-FEW) Urine Bacteria (NEGATIVE) Med Orders - Current: Current Medications Atorvastatin Calcium (Lipitor) 40 mg PO BEDTIME [facility] Last Admin: 03/06/17 21:46 Dose: 40 mg Carbidopa/Levodopa (Sinemet 25-100 Mg) 1 tab PO QID [facility] Last Admin: 03/07/17 06:21 Dose: 1 tab Pantoprazole Sodium 80 mg/ (Sodium Chloride) 100 mls @ 10 mls/hr IV .Continuous [facility] Last Admin: 03/07/17 06:14 Dose: 10 mls/hr Sodium Chloride (Normal Saline) 1,000 mls @ 125 mls/hr IV ASDIRECTED [facility] Last Admin: 03/07/17 09:59 Dose: 125 mls/hr Insulin Aspart (Novolog) 0 unit SUBCUT Q6H ROBERT PRN Reason: Protocol Last Admin: 03/07/17 06:21 Dose: Not Given Ondansetron HCl (Zofran) 4 mg IVPUSH Q4H PRN PRN Reason: Nausea Sodium Chloride (Saline Flush) 10 ml FLUSH ASDIRECTED PRN PRN Reason: Keep Vein Open Sodium Chloride (Saline Flush) 2.5 ml FLUSH ASDIRECTED PRN PRN Reason: Keep Vein Open Discontinued Medications Sodium Chloride (Normal Saline) 1,000 mls @ 999 mls/hr IV STAT ONE Stop: 03/06/17 17:28 Last Admin: 03/06/17 16:15 Dose: 999 mls/hr Magnesium Sulfate 4 gm/ Premix 100 mls @ 50 mls/hr IV ONETIME ONE Stop: 03/07/17 00:18 Last Admin: 03/06/17 22:49 Dose: 50 mls/hr Insulin Aspart (Novolog) 0 unit SUBCUT Q6H ROBERT PRN Reason: Protocol Last Admin: 03/07/17 02:15 Dose: Not Given Pantoprazole Sodium (Protonix Iv) 80 mg IVPUSH .BOLUS ONE Stop: 03/06/17 17:43 Last Admin: 03/06/17 19:07 Dose: 80 mg - Exam General: Cooperative, No Acute Distress HEENT: Pupils Equal, Pupils Reactive, EOMI, Mucous Membr. Moist/[employer] Neck: Supple, No JVD Lungs: Clear to Auscultation, Normal Respiratory Effort Cardiovascular: Regular Rate GI/Abdominal Exam: Normal Bowel Sounds, Soft, Non-Tender, No Distention Back Exam: Normal Inspection, Full Range of Motion Extremities: Normal Inspection, No Pedal Edema, Normal Capillary Refill Skin: Warm, Dry, Intact Neurological: No New Focal Deficit Psy/Mental Status: Normal Affect, Normal Mood - Problem List Review Problem List Initiated/Reviewed/Updated: Yes - My Orders Last 24 Hours: My Active Orders 03/07/17 08:14 OCCULT BLOOD SCREEN [OP] Routine - Plan Plan:: 87 year old male with history of CAD s/p PCI in August 2016, HTN, CHF, NIDDM & dementia admitted for near syncope, melena and HOMA. Developed Torsades overnight #Torsades de Pointes -multiple short intermittent episodes on telemetry -patient asymptomatic -initial EKG in ED sinus with junctional tachycardia and normal QT & QTc -had PCI with 5 stents placed in August 2016 in [place] -Mg 1.6 at admission, received MgSO4 4 gm IV plan: -continue telemetry -DC Zofran and any other QT prolonging meds -consult cardiology #Melena -occurred 2x over 2 days -Hb 10.4 at admission, then decreased to 9.6 at q4h, then improved to 9.7 at q4h -currently NPO and on Protonix drip plan: -stool occult blood -Hold Plavix -continue protonix drip -continue serial Hb #HOMA -Cr 2.7 at admission, currently 2.4 -Baseline Cr unavailable -I assume patient has history CKD. Patient denies any previous history of renal disease however he does have dementia and is poor historian. plan: -continue IVF -monitor renal function -[facility] #Hx CAD s/p PCI -home meds include Plavix and Atorvastatin plan -hold Plavix until gi bleed is r/o -continue atorvastatin #Hx of HTN & CHF -home medications include Plavix 75 mg BID, Coozar 25 mg QD, HCTZ 25 mg QD, Atenolol 25 mg QD plan: -resume once bp stabilizes #Dementia -resume home carbidopa-levodopa #NIDDM -hold home medications and start ISS
--- NOTE | 2017-03-07 14:58 | CT ---
EXAM DATE: 03/06/17 PATIENT'S AGE: 87 Patient: LEDY HARP Facility: [place], [place] Site . Site : 1930 Study: CT Head [id number] 5:31:37 PM Ordering Physician: Cuauhtemoc Schmitt Final Report: INDICATION: Pain TECHNIQUE: Head CT without contrast. COMPARISON: None. FINDINGS: CSF spaces: Within normal limits for age. Brain parenchyma: There are nonspecific low attenuation white matter changes consistent with chronic microvascular disease. No sign of mass, hemorrhage, or midline shift. Skull base and calvarium: The visualized paranasal sinuses and mastoid air cells are clear. The visualized orbits are grossly unremarkable. No skull fractures. There is intracranial atherosclerosis. IMPRESSION: 1. No acute findings. 2. Nonspecific white matter disease, typical of chronic microvascular disease. Dictated by: Leo Irving MD @ 03/06/2017 18:27:46 (Electronic Signature) Report Signed by Proxy. [facility]
--- NOTE | 2017-03-07 15:22 | CR ---
EXAM DATE: 03/06/17 PATIENT'S AGE: 87 Patient: LEDY HARP Facility: [place], [place] Site . Site : 1930 Study: XRay Chest [id number] 5:36:25 PM Ordering Physician: Cuauhtemoc Schmitt Final Report: Indication: Weakness. Comparison: None. Findings: Bones demineralized and advanced degenerative changes in noted visualized shoulder joints. Cardiac and mediastinal silhouettes are normal. The pulmonary vasculature is normal. The lungs are free of infiltrate. Impression: No active cardiopulmonary disease. Dictated by Aisha Aguayo MD @ Mar 06 2017 6:27PM (Electronic Signature) Report Signed by Proxy. [facility]RA
[2017-03-07] MEDS ORDERED: Pantoprazole 80 MG in Sodium Chloride 0.9% 100 ML IV SCH (17:00)
[2017-03-07] MEDS ORDERED: Pantoprazole 40 MG Vial IV SCH (18:00)
[2017-03-07] MEDS ORDERED: Pantoprazole 40 MG Vial IVPUSH SCH (21:00)
[2017-03-07] MEDS: atorvaSTATin 40 MG Tab PO SCH (21:40)
[2017-03-07] MEDS: Pantoprazole 40 MG Vial IVPUSH SCH (22:59)
[2017-03-08] MEDS: Carbidopa/Levodopa 25-100 MG Tab PO SCH ×4 (00:59→17:30)
[2017-03-08] MEDS: Insulin Aspart 100 Units/ML 3 ML Pen SUBCUT SCH ×4 (01:00→17:03)
[2017-03-08] MEDS: Sodium Chloride 0.9% 1,000 ML IV SCH ×3 (02:26→18:40)
[2017-03-08] MEDS: Levothyroxine 25 MCG Tab PO SCH (06:44)
[2017-03-08] MEDS: Citalopram 20 MG Tab PO SCH (08:58)
[2017-03-08] MEDS: Pantoprazole 40 MG Vial IVPUSH SCH ×2 (08:58→21:32)
[2017-03-08] MEDS ORDERED: Clopidogrel 75 MG Tab PO SCH (10:26)
--- NOTE | 2017-03-08 13:46 | PCM.PN ---
- General Info Date of Service: 03/08/17 Admission Dx/Problem (Free Text): Admission Diagnosis/Problem Admission Diagnosis/Problem Syncope Subjective Update: Patient continues to do well. He did have 1 small bm this morning he though was dark. Otherwise he remains asymptomatic. He has received 48 hours of Protonix IV therapy. Functional Status: Reports: Pain Controlled - Review of Systems General: Reports: No Symptoms HEENT: Reports: No Symptoms Pulmonary: Reports: No Symptoms Cardiovascular: Reports: No Symptoms Gastrointestinal: Reports: No Symptoms Genitourinary: Reports: No Symptoms Musculoskeletal: Reports: No Symptoms Skin: Reports: No Symptoms Neurological: Reports: No Symptoms Psychiatric: Reports: No Symptoms - Patient Data Vitals - Most Recent: Last Vital Signs Temp 36.8 C 03/08/17 09:00 Pulse 65 03/08/17 09:00 Resp 20 03/08/17 09:00 BP 132/68 03/08/17 09:00 Pulse Ox 97 03/08/17 09:00 Weight - Most Recent: 83.915 kg I&O - Last 24 Hours: Intake & Output 03/07/17 03/08/17 03/08/17 22:59 06:59 14:59 Intake Total 1535 60 Output Total 1450 950 Balance 85 -890 Lab Results Last 24 Hours: Laboratory Results - last 24 hr 03/07/17 03/07/17 03/07/17 Range/Units 12:46 15:19 18:06 WBC (4.0-11.0) K/uL RBC (4.50-5.90) M/uL Hgb (13.0-17.0) g/dL Hct (38.0-50.0) % MCV (80.0-98.0) fL MCH (27.0-32.0) pg MCHC (31.0-37.0) g/dL RDW Std Deviation (28.0-62.0) fl RDW Coeff of Mabel (11.0-15.0) % Plt Count (150-400) K/uL MPV (7.40-12.00) fL Neut % (Auto) (48.0-80.0) % Lymph % (Auto) (16.0-40.0) % Twiggs % (Auto) (0.0-15.0) % Eos % (Auto) (0.0-7.0) % Baso % (Auto) (0.0-1.5) % Neut # (Auto) (1.4-5.7) K/uL Lymph # (Auto) (0.6-2.4) K/uL Twiggs # (Auto) (0.0-0.8) K/uL Eos # (Auto) (0.0-0.7) K/uL Baso # (Auto) (0.0-0.1) K/uL Nucleated RBC % /100WBC Nucleated RBCs # K/uL Sodium 139 (136-146) mmol/L Potassium 5.2 H (3.5-5.1) mmol/L Chloride 115 H (98-110) mmol/L Carbon Dioxide 15 L (21-31) mmol/L BUN 43 H (6.0-23.0) mg/dL Creatinine 2.1 H (0.6-1.5) mg/dL Est Cr Clr Drug Dosing 25.79 mL/min Estimated GFR (MDRD) 30.0 ml/min Glucose 87 (60-110) mg/dL POC Glucose 79 79 (60-110) mg/dL Calcium 8.6 L (8.8-10.8) mg/dL Magnesium 1.8 (1.5-2.3) mEq/L 03/08/17 03/08/17 03/08/17 Range/Units 00:31 06:16 06:16 WBC 5.74 (4.0-11.0) K/uL RBC 3.18 L (4.50-5.90) M/uL Hgb 10.0 L (13.0-17.0) g/dL Hct 30.2 L (38.0-50.0) % MCV 95.0 (80.0-98.0) fL MCH 31.4 (27.0-32.0) pg MCHC 33.1 (31.0-37.0) g/dL RDW Std Deviation 47.1 (28.0-62.0) fl RDW Coeff of Mabel 14 (11.0-15.0) % Plt Count 229 (150-400) K/uL MPV 9.70 (7.40-12.00) fL Neut % (Auto) 67.5 (48.0-80.0) % Lymph % (Auto) 20.0 (16.0-40.0) % Twiggs % (Auto) 10.1 (0.0-15.0) % Eos % (Auto) 2.1 (0.0-7.0) % Baso % (Auto) 0.3 (0.0-1.5) % Neut # (Auto) 3.9 (1.4-5.7) K/uL Lymph # (Auto) 1.2 (0.6-2.4) K/uL Twiggs # (Auto) 0.6 (0.0-0.8) K/uL Eos # (Auto) 0.1 (0.0-0.7) K/uL Baso # (Auto) 0.0 (0.0-0.1) K/uL Nucleated RBC % 0.0 /100WBC Nucleated RBCs # 0 K/uL Sodium 137 (136-146) mmol/L Potassium 4.8 (3.5-5.1) mmol/L Chloride 115 H (98-110) mmol/L Carbon Dioxide 13 L (21-31) mmol/L BUN 38 H (6.0-23.0) mg/dL Creatinine 1.8 H (0.6-1.5) mg/dL Est Cr Clr Drug Dosing 30.09 mL/min Estimated GFR (MDRD) 35.8 ml/min Glucose 66 (60-110) mg/dL POC Glucose 64 (60-110) mg/dL Calcium 8.6 L (8.8-10.8) mg/dL Magnesium 1.7 (1.5-2.3) mEq/L 03/08/17 03/08/17 Range/Units 07:40 12:12 WBC (4.0-11.0) K/uL RBC (4.50-5.90) M/uL Hgb (13.0-17.0) g/dL Hct (38.0-50.0) % MCV (80.0-98.0) fL MCH (27.0-32.0) pg MCHC (31.0-37.0) g/dL RDW Std Deviation (28.0-62.0) fl RDW Coeff of Mabel (11.0-15.0) % Plt Count (150-400) K/uL MPV (7.40-12.00) fL Neut % (Auto) (48.0-80.0) % Lymph % (Auto) (16.0-40.0) % Twiggs % (Auto) (0.0-15.0) % Eos % (Auto) (0.0-7.0) % Baso % (Auto) (0.0-1.5) % Neut # (Auto) (1.4-5.7) K/uL Lymph # (Auto) (0.6-2.4) K/uL Twiggs # (Auto) (0.0-0.8) K/uL Eos # (Auto) (0.0-0.7) K/uL Baso # (Auto) (0.0-0.1) K/uL Nucleated RBC % /100WBC Nucleated RBCs # K/uL Sodium (136-146) mmol/L Potassium (3.5-5.1) mmol/L Chloride (98-110) mmol/L Carbon Dioxide (21-31) mmol/L BUN (6.0-23.0) mg/dL Creatinine (0.6-1.5) mg/dL Est Cr Clr Drug Dosing mL/min Estimated GFR (MDRD) ml/min Glucose (60-110) mg/dL POC Glucose 67 62 (60-110) mg/dL Calcium (8.8-10.8) mg/dL Magnesium (1.5-2.3) mEq/L Paddy Results Last 24 Hours: Microbiology 03/08/17 12:45 Stool Occult Blood (PADDY) - Final Stool / Feces POSITIVE OCCULT BLOOD 03/07/17 13:30 Stool Occult Blood (PADDY) - Final Stool / Feces POSITIVE OCCULT BLOOD Med Orders - Current: Current Medications Atorvastatin Calcium (Lipitor) 40 mg PO BEDTIME [facility] Last Admin: 03/07/17 21:40 Dose: 40 mg Carbidopa/Levodopa (Sinemet 25-100 Mg) 1 tab PO QID [facility] Last Admin: 03/08/17 12:08 Dose: 1 tab Citalopram Hydrobromide (Celexa) 20 mg PO DAILY [facility] Last Admin: 03/08/17 08:58 Dose: 20 mg Clopidogrel Bisulfate (Plavix) 75 mg PO DAILY [facility] Last Admin: 03/08/17 10:47 Dose: 75 mg Sodium Chloride (Normal Saline) 1,000 mls @ 125 mls/hr IV ASDIRECTED [facility] Last Admin: 03/08/17 10:43 Dose: 125 mls/hr Insulin Aspart (Novolog) 0 unit SUBCUT Q6H [facility] PRN Reason: Protocol Last Admin: 03/08/17 12:39 Dose: Not Given Levothyroxine Sodium (Levothyroxine) 25 mcg PO ACBREAKFAST [facility] Last Admin: 03/08/17 06:44 Dose: 25 mcg Pantoprazole Sodium (Protonix Iv) 80 mg IVPUSH BID [facility] Last Admin: 03/08/17 08:58 Dose: 80 mg Sodium Chloride (Saline Flush) 10 ml FLUSH ASDIRECTED PRN PRN Reason: Keep Vein Open Sodium Chloride (Saline Flush) 2.5 ml FLUSH ASDIRECTED PRN PRN Reason: Keep Vein Open Discontinued Medications Sodium Chloride (Normal Saline) 1,000 mls @ 999 mls/hr IV STAT ONE Stop: 03/06/17 17:28 Last Admin: 03/06/17 16:15 Dose: 999 mls/hr Pantoprazole Sodium 80 mg/ (Sodium Chloride) 100 mls @ 10 mls/hr IV .Continuous [facility] Last Admin: 03/07/17 06:14 Dose: 10 mls/hr Magnesium Sulfate 4 gm/ Premix 100 mls @ 50 mls/hr IV ONETIME ONE Stop: 03/07/17 00:18 Last Admin: 03/06/17 22:49 Dose: 50 mls/hr Pantoprazole Sodium 80 mg/ (Sodium Chloride) 100 mls @ 10 mls/hr IV Q10H [facility] Last Admin: 03/07/17 18:19 Dose: Not Given Insulin Aspart (Novolog) 0 unit SUBCUT Q6H [facility] PRN Reason: Protocol Last Admin: 03/07/17 02:15 Dose: Not Given Ondansetron HCl (Zofran) 4 mg IVPUSH Q4H PRN PRN Reason: Nausea Pantoprazole Sodium (Protonix Iv) 80 mg IVPUSH .BOLUS ONE Stop: 03/06/17 17:43 Last Admin: 03/06/17 19:07 Dose: 80 mg Pantoprazole Sodium (Protonix Iv) 40 mg IVPUSH BID [facility] - Exam General: Alert, Oriented, Cooperative, No Acute Distress HEENT: Pupils Equal, Pupils Reactive, Mucous Membr. Moist/[place] Neck: Supple Lungs: Clear to Auscultation, Normal Respiratory Effort Cardiovascular: Regular Rate GI/Abdominal Exam: Normal Bowel Sounds, Soft, Non-Tender, No Distention Back Exam: Normal Inspection Extremities: Normal Inspection, Normal Capillary Refill Skin: Warm, Dry Neurological: No New Focal Deficit Psy/Mental Status: Normal Mood - Problem List Review Problem List Initiated/Reviewed/Updated: Yes - My Orders Last 24 Hours: My Active Orders 03/07/17 21:00 Pantoprazole [ProTONIX IV] 80 mg IVPUSH BID 03/08/17 07:30 Levothyroxine 25 mcg PO ACBREAKFAST 03/08/17 09:00 Citalopram [Celexa] 20 mg PO DAILY 03/08/17 10:26 Clopidogrel [Plavix] 75 mg PO DAILY 03/08/17 14:00 HEMOGLOBIN/HEMATOCRIT,HH [HEME] Q6H 03/08/17 20:00 HEMOGLOBIN/HEMATOCRIT,HH [HEME] Q6H 03/08/17 Lunch Clear Liquid Diet [DIET] 03/09/17 05:11 BMP [BASIC METABOLIC PANEL,BMP] [CHEM] AM CBC WITH AUTO DIFF [HEME] AM 03/10/17 05:11 BMP [BASIC METABOLIC PANEL,BMP] [CHEM] AM CBC WITH AUTO DIFF [HEME] AM 03/11/17 05:11 BMP [BASIC METABOLIC PANEL,BMP] [CHEM] AM CBC WITH AUTO DIFF [HEME] AM 03/12/17 05:11 BMP [BASIC METABOLIC PANEL,BMP] [CHEM] AM CBC WITH AUTO DIFF [HEME] AM 03/13/17 05:11 BMP [BASIC METABOLIC PANEL,BMP] [CHEM] AM CBC WITH AUTO DIFF [HEME] AM 03/14/17 05:11 BMP [BASIC METABOLIC PANEL,BMP] [CHEM] AM CBC WITH AUTO DIFF [HEME] AM 03/15/17 05:11 BMP [BASIC METABOLIC PANEL,BMP] [CHEM] AM CBC WITH AUTO DIFF [HEME] AM 03/16/17 05:11 BMP [BASIC METABOLIC PANEL,BMP] [CHEM] AM CBC WITH AUTO DIFF [HEME] AM 03/17/17 05:11 BMP [BASIC METABOLIC PANEL,BMP] [CHEM] AM CBC WITH AUTO DIFF [HEME] AM - Plan Plan:: 87 year old male with history of CAD s/p PCI in August 2016, HTN, CHF, NIDDM & dementia admitted for near syncope, melena and acute on chronic kidney disease . #Melena -Hb remains stable, vitals stable, patient asymptomatic -stool occult blood from yesterday positive -received 48 hours of Protonix IV therapy - first 24 hours was on continuous drip, since then has been on Protonix 80 mg IV BID -reports small dark bm this morning plan: -Hold Plavix -continue Protonix 80 mg IV BID -clear liquid diet -consulted general surgery - patient will be evaluated by Dr. Perez #Acute on Chronic Kidney Disease, improving -Cr 2.7 at admission -renal function today - Cr 1.8, GFR 31 -[facility] which reveal GFR 41 on 10/04/16 & 32 on 10/29/16 -[facility] also negative for microalbuminuria on 10/29/16 plan: -continue IVF -monitor renal function #Hx CAD s/p PCI -home meds include Plavix and Atorvastatin plan -hold Plavix until gi bleed is r/o -continue atorvastatin #Hx of HTN & CHF -home medications include Plavix 75 mg BID, Coozar 25 mg QD, HCTZ 25 mg QD, Atenolol 25 mg QD plan: -resume once bp stabilizes #Dementia -resume home carbidopa-levodopa #NIDDM -hold home medications and start ISS
--- NOTE | 2017-03-08 15:26 | PCM.CONS ---
H&P History of Present Illness - General Date of Service: 03/08/17 Admit Problem/Dx: Admission Diagnosis/Problem Admission Diagnosis/Problem Melena, anemia Source of Information: Patient History Limitations: Reports: No Limitations - History of Present Illness Onset of Symptoms: Reports: Gradual Symptom Onset Date: 03/06/17 Duration of Symptoms: Reports: Day(s): Location: Reports: Chest, Abdomen, Other (syncopal episode) Quality: Reports: Other (Melena, syncope) Severity: Moderate Improves with: Reports: None Worsens with: Reports: None Associated Symptoms: Reports: Syncope - Related Data Allergies/Adverse Reactions: Allergies Allergy/AdvReac Type Severity Reaction Status Date / Time No Known Allergies Allergy Verified 03/06/17 16:22 Home Medications: Home Meds Atenolol 25 mg PO DAILY 03/06/17 [History] Carbidopa/Levodopa [Carbidopa-Levodopa 25-100 Tab] 1 tab PO QID 03/06/17 [ History] Carboxymethylcell/Hypromellose [[facility] Lubricant Gel Eye Drops] 1 drop OP QID PRN 03/06/17 [History] Citalopram [Celexa] 20 mg PO DAILY 03/06/17 [History] Clopidogrel [Plavix] 75 mg PO DAILY 03/06/17 [History] Fish Oil/[place]-3 Fatty Acids [Fish Oil] 1 gm PO BID 03/06/17 [History] Gemfibrozil 600 mg PO BID 03/06/17 [History] Hydrochlorothiazide 25 mg PO DAILY 03/06/17 [History] Levothyroxine 25 mcg PO ACBREAKFAST 03/06/17 [History] Losartan [Cozaar] 25 mg PO DAILY 03/06/17 [History] Methylcellulose [Fiber] 500 mg PO DAILY 03/06/17 [History] Nitroglycerin 0.4 mg SL Q5M PRN MDD 3 03/06/17 [History] Pantoprazole [ProTONIX] 40 mg PO ACBREAKFAST 03/06/17 [History] Potassium Chloride [Klor-Con M20] 20 meq PO DAILY 03/06/17 [History] atorvaSTATin [Lipitor] 40 mg PO BEDTIME 03/06/17 [History] metFORMIN HCl [Metformin HCl ER] 500 mg PO BID 03/06/17 [History] Past Medical History - Past Health History Medical/Surgical History: Denies Medical/Surgical History HEENT History: Reports: Impaired Vision Other HEENT History: wears glasses Cardiovascular History: Reports: CAD, Stents Neurological History: Reports: Parkinson's Endocrine/Metabolic History: Reports: Diabetes, Type II Oncologic (Cancer) History: Reports: Other (See Below) Other Oncologic History: Hx: Skin Cancer - Infectious Disease History Infectious Disease History: Reports: Measles, Mumps - Past Surgical History Musculoskeletal Surgical History: Reports: Knee Replacement, Other (See Below) Other Musculoskeletal Surgeries/Procedures:: Right TKA Social & Family History - Family History Family Medical History: Noncontributory - Tobacco Use Smoking Status *Q: Former Smoker Years of Tobacco use: 20 Packs/Tins Daily: 1 Used Tobacco, but Quit: Yes Month Tobacco Last Used: 40 years ago Second Hand Smoke Exposure: No - Caffeine Use Caffeine Use: Reports: Coffee - Recreational Drug Use Recreational Drug Use: No H&P Review of Systems - Review of Systems: Review Of Systems: See Below General: Denies: Fever, Chills, Malaise, Weakness, Diaphoresis HEENT: Reports: No Symptoms Pulmonary: Denies: Shortness of Breath, Wheezing, Cough Cardiovascular: Denies: Chest Pain, Palpitations, Edema Gastrointestinal: Reports: Black Stool, Melena. Denies: Abdominal Pain, Anorexia, Bloody Stool, Constipation, Diarrhea, Decreased Appetite, Difficulty Swallowing Genitourinary: Denies: Dysuria, Frequency Musculoskeletal: Reports: No Symptoms Skin: Denies: Cyanosis, Jaundice, Pallor Psychiatric: Reports: No Symptoms Neurological: Reports: No Symptoms Hematologic/Lymphatic: Reports: No Symptoms Immunologic: Reports: No Symptoms Exam - Exam Exam: See Below - Vital Signs Vital Signs: Last Vital Signs Temp 98.2 F 03/08/17 09:00 Pulse 65 03/08/17 09:00 Resp 20 03/08/17 09:00 BP 132/68 03/08/17 09:00 Pulse Ox 97 03/08/17 09:00 Weight: 185 lb - Exam Quality Assessment: Supplemental Oxygen General: Alert, Oriented, Cooperative HEENT: Conjunctiva Clear, EACs Clear. No: Scleral Icterus Neck: Supple, Trachea Midline Lungs: Clear to Auscultation, Normal Respiratory Effort Cardiovascular: Regular Rate, Regular Rhythm. No: Tachycardia GI/Abdominal Exam: Normal Bowel Sounds, Soft, Non-Tender, No Distention. No: Guarding, Rigid, Rebound (Male) Exam: No Hernia Rectal (Males) Exam: Deferred, Heme + Stool (per lab) Back Exam: Normal Inspection Extremities: Normal Inspection, Non-Tender Skin: Warm, Dry, Intact Neurological: Cranial Nerves Intact Neuro Extensive - Mental Status: Alert, Oriented x3, Normal Mood/Affect Psychiatric: Alert, Normal Affect, Normal Mood - Patient Data Lab Results Last 24 hrs: Laboratory Results - last 24 hr 03/07/17 03/07/17 03/07/17 Range/Units 12:46 15:19 18:06 WBC (4.0-11.0) K/uL RBC (4.50-5.90) M/uL Hgb (13.0-17.0) g/dL Hct (38.0-50.0) % MCV (80.0-98.0) fL MCH (27.0-32.0) pg MCHC (31.0-37.0) g/dL RDW Std Deviation (28.0-62.0) fl RDW Coeff of Mabel (11.0-15.0) % Plt Count (150-400) K/uL MPV (7.40-12.00) fL Neut % (Auto) (48.0-80.0) % Lymph % (Auto) (16.0-40.0) % Morrill % (Auto) (0.0-15.0) % Eos % (Auto) (0.0-7.0) % Baso % (Auto) (0.0-1.5) % Neut # (Auto) (1.4-5.7) K/uL Lymph # (Auto) (0.6-2.4) K/uL Morrill # (Auto) (0.0-0.8) K/uL Eos # (Auto) (0.0-0.7) K/uL Baso # (Auto) (0.0-0.1) K/uL Nucleated RBC % /100WBC Nucleated RBCs # K/uL Sodium 139 (136-146) mmol/L Potassium 5.2 H (3.5-5.1) mmol/L Chloride 115 H (98-110) mmol/L Carbon Dioxide 15 L (21-31) mmol/L BUN 43 H (6.0-23.0) mg/dL Creatinine 2.1 H (0.6-1.5) mg/dL Est Cr Clr Drug Dosing 25.79 mL/min Estimated GFR (MDRD) 30.0 ml/min Glucose 87 (60-110) mg/dL POC Glucose 79 79 (60-110) mg/dL Calcium 8.6 L (8.8-10.8) mg/dL Magnesium 1.8 (1.5-2.3) mEq/L 03/08/17 03/08/17 03/08/17 Range/Units 00:31 06:16 06:16 WBC 5.74 (4.0-11.0) K/uL RBC 3.18 L (4.50-5.90) M/uL Hgb 10.0 L (13.0-17.0) g/dL Hct 30.2 L (38.0-50.0) % MCV 95.0 (80.0-98.0) fL MCH 31.4 (27.0-32.0) pg MCHC 33.1 (31.0-37.0) g/dL RDW Std Deviation 47.1 (28.0-62.0) fl RDW Coeff of Mabel 14 (11.0-15.0) % Plt Count 229 (150-400) K/uL MPV 9.70 (7.40-12.00) fL Neut % (Auto) 67.5 (48.0-80.0) % Lymph % (Auto) 20.0 (16.0-40.0) % Morrill % (Auto) 10.1 (0.0-15.0) % Eos % (Auto) 2.1 (0.0-7.0) % Baso % (Auto) 0.3 (0.0-1.5) % Neut # (Auto) 3.9 (1.4-5.7) K/uL Lymph # (Auto) 1.2 (0.6-2.4) K/uL Morrill # (Auto) 0.6 (0.0-0.8) K/uL Eos # (Auto) 0.1 (0.0-0.7) K/uL Baso # (Auto) 0.0 (0.0-0.1) K/uL Nucleated RBC % 0.0 /100WBC Nucleated RBCs # 0 K/uL Sodium 137 (136-146) mmol/L Potassium 4.8 (3.5-5.1) mmol/L Chloride 115 H (98-110) mmol/L Carbon Dioxide 13 L (21-31) mmol/L BUN 38 H (6.0-23.0) mg/dL Creatinine 1.8 H (0.6-1.5) mg/dL Est Cr Clr Drug Dosing 30.09 mL/min Estimated GFR (MDRD) 35.8 ml/min Glucose 66 (60-110) mg/dL POC Glucose 64 (60-110) mg/dL Calcium 8.6 L (8.8-10.8) mg/dL Magnesium 1.7 (1.5-2.3) mEq/L 03/08/17 03/08/17 03/08/17 Range/Units 07:40 12:12 14:04 WBC (4.0-11.0) K/uL RBC (4.50-5.90) M/uL Hgb 10.1 L (13.0-17.0) g/dL Hct 30.6 L (38.0-50.0) % MCV (80.0-98.0) fL MCH (27.0-32.0) pg MCHC (31.0-37.0) g/dL RDW Std Deviation (28.0-62.0) fl RDW Coeff of Mabel (11.0-15.0) % Plt Count (150-400) K/uL MPV (7.40-12.00) fL Neut % (Auto) (48.0-80.0) % Lymph % (Auto) (16.0-40.0) % Morrill % (Auto) (0.0-15.0) % Eos % (Auto) (0.0-7.0) % Baso % (Auto) (0.0-1.5) % Neut # (Auto) (1.4-5.7) K/uL Lymph # (Auto) (0.6-2.4) K/uL [place]rill # (Auto) (0.0-0.8) K/uL Eos # (Auto) (0.0-0.7) K/uL Baso # (Auto) (0.0-0.1) K/uL Nucleated RBC % /100WBC Nucleated RBCs # K/uL Sodium (136-146) mmol/L Potassium (3.5-5.1) mmol/L Chloride (98-110) mmol/L Carbon Dioxide (21-31) mmol/L BUN (6.0-23.0) mg/dL Creatinine (0.6-1.5) mg/dL Est Cr Clr Drug Dosing mL/min Estimated GFR (MDRD) ml/min Glucose (60-110) mg/dL POC Glucose 67 62 (60-110) mg/dL Calcium (8.8-10.8) mg/dL Magnesium (1.5-2.3) mEq/L Result Diagrams: 03/08/17 14:04 03/08/17 06:16 Paddy Results Last 24 hrs: Microbiology 03/08/17 12:45 Stool Occult Blood (PADDY) - Final Stool / Feces POSITIVE OCCULT BLOOD 03/07/17 13:30 Stool Occult Blood (PADDY) - Final Stool / Feces POSITIVE OCCULT BLOOD Consult PN Assessment/Plan Procedures: Procedures CHEST X-RAY 2VW FRONTAL&LATL (12/12/15) COMPLETE CBC W/AUTO DIFF WBC (12/30/16) COMPREHEN METABOLIC PANEL (12/30/16) CT ABD & PELVIS W/O CONTRAST (12/30/16) EMERGENCY DEPT VISIT (12/30/16) EMERGENCY DEPT VISIT (06/24/13) EMERGENCY DEPT VISIT (06/24/13) EXTREMITY STUDY (06/24/13) MRI JOINT UPR EXTREM W/O DYE (12/22/15) PT EVALUATION (06/28/13) ROUTINE VENIPUNCTURE (12/30/16) THERAPEUTIC EXERCISES (06/28/13) URINALYSIS AUTO W/SCOPE (12/30/16) URINE CULTURE/COLONY COUNT (12/30/16) VASOPNEUMATIC DEVICE THERAPY (06/28/13) X-RAY EXAM OF ANKLE (06/24/13) X-RAY EXAM OF FOOT (09/05/16) X-RAY EXAM OF KNEE 3 (01/04/14) X-RAY EXAM OF SHOULDER (12/13/15) (1) Heme positive stool SNOMED Code(s): 57075431 Code(s): R19.5 - OTHER FECAL ABNORMALITIES Priority: High Current Visit: Yes (2) Anemia SNOMED Code(s): 222634068 Code(s): D64.9 - ANEMIA, UNSPECIFIED Priority: High Current Visit: Yes Qualifiers: Iron deficiency anemia type: chronic blood loss (3) Diabetes SNOMED Code(s): 26313700 Code(s): E11.9 - TYPE 2 DIABETES MELLITUS WITHOUT COMPLICATIONS Priority: Medium Current Visit: Yes Qualifiers: Diabetes mellitus type: type 2 (4) Hypotension SNOMED Code(s): 28149662 Code(s): I95.9 - HYPOTENSION, UNSPECIFIED Current Visit: Yes Qualifiers: Hypotension type: unspecified hypotension type Qualified Code(s): I95.9 - Hypotension, unspecified (5) Near syncope SNOMED Code(s): 830306457 Code(s): R55 - SYNCOPE AND COLLAPSE Priority: High Current Visit: Yes (6) Upper GI bleed SNOMED Code(s): 71979428 Code(s): K92.2 - GASTROINTESTINAL HEMORRHAGE, UNSPECIFIED Priority: Medium Current Visit: Yes Problem List Initiated/Reviewed/Updated: Yes Plan: Hemoglobin has remained throughout the hospital course. He has not required transfusion. Stools are still black and heme positive. I agree this is most likely UGI source aggravated by Plavix use. RECOMMENDATIONS: Would add Carafate 1 gm po qid to protect the gastric lining. Would hold Plavix until stools are normal colored and not heme positive. If hemoglobin doesn't improve, only then would I consider EGD. Thank you for the consult.
[2017-03-08] MEDS: Sucralfate Suspension 1 GM/10 ML Cup PO SCH (21:32)
[2017-03-08] MEDS: atorvaSTATin 40 MG Tab PO SCH (21:32)
[2017-03-09] MEDS: Carbidopa/Levodopa 25-100 MG Tab PO SCH ×4 (00:39→18:25)
[2017-03-09] MEDS: Insulin Aspart 100 Units/ML 3 ML Pen SUBCUT SCH ×5 (00:39→21:28)
[2017-03-09] MEDS: Sucralfate Suspension 1 GM/10 ML Cup PO SCH ×4 (00:39→18:25)
[2017-03-09] MEDS: Sodium Chloride 0.9% 1,000 ML IV SCH (02:40)
[2017-03-09] MEDS: Levothyroxine 25 MCG Tab PO SCH (06:38)
--- NOTE | 2017-03-09 08:20 | PCM.PN ---
- General Info Date of Service: 03/09/17 Admission Dx/Problem (Free Text): Admission Diagnosis/Problem Admission Diagnosis/Problem Melena, anemia Subjective Update: Had a normal bowl movement this morning. No pain. Very hungry denies nausea or vomiting. Functional Status: Reports: Pain Controlled - Review of Systems General: Denies: Fever, Weakness, Fatigue HEENT: Denies: Headaches, Visual Changes Pulmonary: Denies: Shortness of Breath, Hemoptysis Cardiovascular: Denies: Chest Pain, Edema Gastrointestinal: Denies: Abdominal Pain, Nausea, Vomiting Genitourinary: Denies: Dysuria, Hematuria Musculoskeletal: Denies: Neck Pain, Leg Pain Skin: Denies: Cyanosis Neurological: Denies: Confusion, Dizziness, Headache Psychiatric: Denies: Confusion, Depression - Patient Data Vitals - Most Recent: Last Vital Signs Temp 98 F 03/09/17 04:00 Pulse 61 03/09/17 04:00 Resp 19 03/09/17 04:00 BP 125/65 03/09/17 04:00 Pulse Ox 95 03/09/17 04:00 Weight - Most Recent: 83.915 kg I&O - Last 24 Hours: Intake & Output 03/08/17 03/09/17 03/09/17 22:59 06:59 14:59 Intake Total 1000 Output Total 1502 Balance -1502 1000 Lab Results Last 24 Hours: Laboratory Results - last 24 hr 03/08/17 03/08/17 03/08/17 Range/Units 12:12 14:04 17:01 WBC (4.0-11.0) K/uL RBC (4.50-5.90) M/uL Hgb 10.1 L (13.0-17.0) g/dL Hct 30.6 L (38.0-50.0) % MCV (80.0-98.0) fL MCH (27.0-32.0) pg MCHC (31.0-37.0) g/dL RDW Std Deviation (28.0-62.0) fl RDW Coeff of Mabel (11.0-15.0) % Plt Count (150-400) K/uL MPV (7.40-12.00) fL Neut % (Auto) (48.0-80.0) % Lymph % (Auto) (16.0-40.0) % [place] % (Auto) (0.0-15.0) % Eos % (Auto) (0.0-7.0) % Baso % (Auto) (0.0-1.5) % Neut # (Auto) (1.4-5.7) K/uL Lymph # (Auto) (0.6-2.4) K/uL [place] # (Auto) (0.0-0.8) K/uL Eos # (Auto) (0.0-0.7) K/uL Baso # (Auto) (0.0-0.1) K/uL Nucleated RBC % /100WBC Nucleated RBCs # K/uL Sodium (136-146) mmol/L Potassium (3.5-5.1) mmol/L Chloride (98-110) mmol/L Carbon Dioxide (21-31) mmol/L BUN (6.0-23.0) mg/dL Creatinine (0.6-1.5) mg/dL Est Cr Clr Drug Dosing mL/min Estimated GFR (MDRD) ml/min Glucose (60-110) mg/dL POC Glucose 62 78 (60-110) mg/dL Calcium (8.8-10.8) mg/dL 03/08/17 03/09/17 03/09/17 Range/Units 19:54 00:38 04:55 WBC 7.65 (4.0-11.0) K/uL RBC 3.03 L (4.50-5.90) M/uL Hgb 9.5 L 9.6 L (13.0-17.0) g/dL Hct 28.4 L 28.2 L (38.0-50.0) % MCV 93.1 (80.0-98.0) fL MCH 31.7 (27.0-32.0) pg MCHC 34.0 (31.0-37.0) g/dL RDW Std Deviation 44.4 (28.0-62.0) fl RDW Coeff of Mabel 13 (11.0-15.0) % Plt Count 219 (150-400) K/uL MPV 9.80 (7.40-12.00) fL Neut % (Auto) 74.6 (48.0-80.0) % Lymph % (Auto) 14.1 L (16.0-40.0) % [place] % (Auto) 9.4 (0.0-15.0) % Eos % (Auto) 1.6 (0.0-7.0) % Baso % (Auto) 0.3 (0.0-1.5) % Neut # (Auto) 5.7 (1.4-5.7) K/uL Lymph # (Auto) 1.1 (0.6-2.4) K/uL [place] # (Auto) 0.7 (0.0-0.8) K/uL Eos # (Auto) 0.1 (0.0-0.7) K/uL Baso # (Auto) 0.0 (0.0-0.1) K/uL Nucleated RBC % 0.0 /100WBC Nucleated RBCs # 0 K/uL Sodium (136-146) mmol/L Potassium (3.5-5.1) mmol/L Chloride (98-110) mmol/L Carbon Dioxide (21-31) mmol/L BUN (6.0-23.0) mg/dL Creatinine (0.6-1.5) mg/dL Est Cr Clr Drug Dosing mL/min Estimated GFR (MDRD) ml/min Glucose (60-110) mg/dL POC Glucose 77 (60-110) mg/dL Calcium (8.8-10.8) mg/dL 03/09/17 03/09/17 Range/Units 04:55 06:39 WBC (4.0-11.0) K/uL RBC (4.50-5.90) M/uL Hgb (13.0-17.0) g/dL Hct (38.0-50.0) % MCV (80.0-98.0) fL MCH (27.0-32.0) pg MCHC (31.0-37.0) g/dL RDW Std Deviation (28.0-62.0) fl RDW Coeff of Mabel (11.0-15.0) % Plt Count (150-400) K/uL MPV (7.40-12.00) fL Neut % (Auto) (48.0-80.0) % Lymph % (Auto) (16.0-40.0) % [place] % (Auto) (0.0-15.0) % Eos % (Auto) (0.0-7.0) % Baso % (Auto) (0.0-1.5) % Neut # (Auto) (1.4-5.7) K/uL Lymph # (Auto) (0.6-2.4) K/uL [place] # (Auto) (0.0-0.8) K/uL Eos # (Auto) (0.0-0.7) K/uL Baso # (Auto) (0.0-0.1) K/uL Nucleated RBC % /100WBC Nucleated RBCs # K/uL Sodium 136 (136-146) mmol/L Potassium 4.1 (3.5-5.1) mmol/L Chloride 114 H (98-110) mmol/L Carbon Dioxide 14 L (21-31) mmol/L BUN 28 H (6.0-23.0) mg/dL Creatinine 1.6 H (0.6-1.5) mg/dL Est Cr Clr Drug Dosing 33.85 mL/min Estimated GFR (MDRD) 41.0 ml/min Glucose 81 (60-110) mg/dL POC Glucose 85 (60-110) mg/dL Calcium 8.3 L (8.8-10.8) mg/dL Paddy Results Last 24 Hours: Microbiology 03/08/17 12:45 Stool Occult Blood (PADDY) - Final Stool / Feces POSITIVE OCCULT BLOOD Med Orders - Current: Current Medications Atorvastatin Calcium (Lipitor) 40 mg PO BEDTIME [facility] Last Admin: 03/08/17 21:32 Dose: 40 mg Carbidopa/Levodopa (Sinemet 25-100 Mg) 1 tab PO QID [facility] Last Admin: 03/09/17 06:38 Dose: 1 tab Citalopram Hydrobromide (Celexa) 20 mg PO DAILY [facility] Last Admin: 03/08/17 08:58 Dose: 20 mg Sodium Chloride (Normal Saline) 1,000 mls @ 125 mls/hr IV ASDIRECTED [facility] Last Admin: 03/09/17 02:40 Dose: 125 mls/hr Insulin Aspart (Novolog) 0 unit SUBCUT Q6H [facility] PRN Reason: Protocol Last Admin: 03/09/17 06:41 Dose: Not Given Levothyroxine Sodium (Levothyroxine) 25 mcg PO ACBREAKFAST [facility] Last Admin: 03/09/17 06:38 Dose: 25 mcg Pantoprazole Sodium (Protonix Iv) 80 mg IVPUSH BID [facility] Last Admin: 03/08/17 21:32 Dose: 80 mg Sodium Chloride (Saline Flush) 10 ml FLUSH ASDIRECTED PRN PRN Reason: Keep Vein Open Sodium Chloride (Saline Flush) 2.5 ml FLUSH ASDIRECTED PRN PRN Reason: Keep Vein Open Sucralfate (Carafate) 1 gm PO Q6H [facility] Last Admin: 03/09/17 06:38 Dose: 1 gm Discontinued Medications Clopidogrel Bisulfate (Plavix) 75 mg PO DAILY [facility] Last Admin: 03/08/17 10:47 Dose: 75 mg Sodium Chloride (Normal Saline) 1,000 mls @ 999 mls/hr IV STAT ONE Stop: 03/06/17 17:28 Last Admin: 03/06/17 16:15 Dose: 999 mls/hr Pantoprazole Sodium 80 mg/ (Sodium Chloride) 100 mls @ 10 mls/hr IV .Continuous [facility] Last Admin: 03/07/17 06:14 Dose: 10 mls/hr Magnesium Sulfate 4 gm/ Premix 100 mls @ 50 mls/hr IV ONETIME ONE Stop: 03/07/17 00:18 Last Admin: 03/06/17 22:49 Dose: 50 mls/hr Pantoprazole Sodium 80 mg/ (Sodium Chloride) 100 mls @ 10 mls/hr IV Q10H [facility] Last Admin: 03/07/17 18:19 Dose: Not Given Insulin Aspart (Novolog) 0 unit SUBCUT Q6H [facility] PRN Reason: Protocol Last Admin: 03/07/17 02:15 Dose: Not Given Ondansetron HCl (Zofran) 4 mg IVPUSH Q4H PRN PRN Reason: Nausea Pantoprazole Sodium (Protonix Iv) 80 mg IVPUSH .BOLUS ONE Stop: 03/06/17 17:43 Last Admin: 03/06/17 19:07 Dose: 80 mg Pantoprazole Sodium (Protonix Iv) 40 mg IVPUSH BID [facility] - Exam Quality Assessment: DVT Prophylaxis General: Alert, Oriented, Cooperative, No Acute Distress HEENT: Pupils Equal, Pupils Reactive, EOMI, Mucous Membr. Moist/[place] Neck: Supple Lungs: Clear to Auscultation, Normal Respiratory Effort Cardiovascular: Regular Rate, Regular Rhythm GI/Abdominal Exam: Normal Bowel Sounds, Soft, Non-Tender, No Organomegaly, No Distention Back Exam: Normal Inspection Extremities: Normal Inspection, Non-Tender, No Pedal Edema, Normal Capillary Refill Peripheral Pulses: 2+: Radial (L), Radial (R), Posterior Tibial (L), Posterior Tibial (R), Dorsalis Pedis (L), Dorsalis Pedis (R) Skin: Warm, Dry, Intact Wound/Incisions: Healing Well Neurological: No New Focal Deficit Psy/Mental Status: Alert, Normal Affect, Normal Mood - Problem List & Annotations (1) Heme positive stool SNOMED Code(s): 46156680 Code(s): R19.5 - OTHER FECAL ABNORMALITIES Status: Resolved Priority: High Current Visit: Yes (2) Upper GI bleed SNOMED Code(s): 71756692 Code(s): K92.2 - GASTROINTESTINAL HEMORRHAGE, UNSPECIFIED Status: Suspected Priority: Medium Current Visit: Yes - Problem List Review Problem List Initiated/Reviewed/Updated: Yes - My Orders Last 24 Hours: My Active Orders 03/08/17 18:30 Sucralfate [Carafate] 1 gm PO Q6H - Plan Plan:: 87 year old male admitted 03/06/16 for near syncope with history of CAD s/p PCI in August 2016, HTN, CHF, NIDDM & dementia. #Melena -Hb remains stable, vitals stable, patient asymptomatic -Normal stool this morning -Protonix 80 mg BID plan: -Start Plavix -continue Protonix 80 mg IV BID -Full diet -Added carafate as per recomendation of Dr. Perez #Acute on Chronic Kidney Disease, improving -Cr 2.7 at admission 1.6 today. Patient tolerating oral will stop IVF and push oral hydration -[facility] G[facility] 41 [facility] 10/04/16 & 32 on 10/29/16 -[facility] also negative for microalbuminuria on 10/29/16 plan: #Hx CAD s/p PCI -home meds include Plavix and Atorvastatin plan -restarted Plavix this am as regular bm and stents in August -continue atorvastatin #Hx of HTN & CHF -home medications include Plavix 75 mg BID, Coozar 25 mg QD, HCTZ 25 mg QD, Atenolol 25 mg QD plan: -resume once bp stabilizes #Dementia -cont. home carbidopa-levodopa #NIDDM -hold home medications and start ISS VTE pharm: SCD, no pharm secondary to GI Bleed Dispo: tomorrow pending
[2017-03-09] MEDS: Citalopram 20 MG Tab PO SCH (08:38)
[2017-03-09] MEDS: Pantoprazole 40 MG Vial IVPUSH SCH ×2 (08:38→21:28)
[2017-03-09] MEDS ORDERED: Calcium Carbonate 500 MG Tab.Chew PO ONE (09:07)
[2017-03-09] MEDS: Clopidogrel 75 MG Tab PO SCH (09:30)
[2017-03-09] MEDS: atorvaSTATin 40 MG Tab PO SCH (21:28)
[2017-03-10] MEDS: Sucralfate Suspension 1 GM/10 ML Cup PO SCH ×3 (00:18→12:12)
[2017-03-10] MEDS: Carbidopa/Levodopa 25-100 MG Tab PO SCH ×3 (00:18→11:09)
[2017-03-10] MEDS: Levothyroxine 25 MCG Tab PO SCH (06:43)
[2017-03-10] MEDS: Insulin Aspart 100 Units/ML 3 ML Pen SUBCUT SCH ×2 (06:44→11:21)
[2017-03-10] MEDS: Clopidogrel 75 MG Tab PO SCH (08:31)
[2017-03-10] MEDS: Citalopram 20 MG Tab PO SCH (08:31)
[2017-03-10] MEDS: Pantoprazole 40 MG Vial IVPUSH SCH (08:33)
--- NOTE | 2017-03-10 11:44 | PCM.DCSUM1 ---
Discharge Summary - Hospital Course HPI Initial Comments: 87 year old male admitted 03/06/16 for near syncope found to suspected Upper GI bleed with history of CAD s/p PCI in August 2016, HTN, CHF, NIDDM & dementia. Brief History: 87 yo male with pmh of DM, CAD, CABG who presented to the ED with complaint of dizziness and near syncopy while at the ice cream shop at [facility]. He reported having black stools earlier this week. He denied any fevers, chills, shortness of breath, or chest pain. In the ED he was noted to have HR of 111 in sinus tach and BP of 96/95. He was given IV fluids and started on a protonix drip. Stool occult was positive. - Discharge Data Discharge Date: 03/10/17 Discharge Disposition: Home, Self-Care 01 Condition: Good - Discharge Diagnosis/Problem(s) (1) Heme positive stool SNOMED Code(s): 37638223 ICD Code: R19.5 - OTHER FECAL ABNORMALITIES Status: Resolved Priority: High (2) Upper GI bleed SNOMED Code(s): 49508007 ICD Code: K92.2 - GASTROINTESTINAL HEMORRHAGE, UNSPECIFIED Status: Suspected Priority: Medium - Patient Instructions Diet: Diabetic Diet Activity: Rest and Relax Today Driving: Do Not Drive Showering/Bathing: May Shower Notify Provider of: Fever, Increased Pain, Nausea and/or Vomiting - Discharge Plan Prescriptions/Med Rec: Sucralfate [Carafate] 1 gm PO Q6H #28 cup Home Medications: Home Meds Atenolol 25 mg PO DAILY 03/06/17 [History] Carbidopa/Levodopa [Carbidopa-Levodopa 25-100 Tab] 1 tab PO QID 03/06/17 [ History] Citalopram [Celexa] 20 mg PO DAILY 03/06/17 [History] Clopidogrel [Plavix] 75 mg PO DAILY 03/06/17 [History] Fish Oil/[place]-3 Fatty Acids [Fish Oil 1,000 MG] 1 gm PO BID 03/06/17 [History] Gemfibrozil 600 mg PO BID 03/06/17 [History] Hydrochlorothiazide 25 mg PO DAILY 03/06/17 [History] Levothyroxine 25 mcg PO ACBREAKFAST 03/06/17 [History] Losartan [Cozaar] 25 mg PO DAILY 03/06/17 [History] Methylcellulose [Fiber] 500 mg PO DAILY 03/06/17 [History] Nitroglycerin 0.4 mg SL Q5M PRN MDD 3 03/06/17 [History] Pantoprazole [ProTONIX] 40 mg PO ACBREAKFAST 03/06/17 [History] Potassium Chloride [Klor-Con M20] 20 meq PO DAILY 03/06/17 [History] atorvaSTATin [Lipitor] 40 mg PO BEDTIME 03/06/17 [History] metFORMIN HCl [Metformin HCl ER] 500 mg PO BID 03/06/17 [History] Sucralfate [Carafate] 1 gm PO Q6H #28 cup 03/10/17 [Rx] Patient Handouts: Gastrointestinal Bleeding, [id number], Sucralfate oral suspension Referrals: Mariano Perez MD [Physician] - 03/18/17 9:15 am - Discharge Summary/Plan Comment DC Time >30 min.: Yes Discharge Summary/Plan Comment: 87 year old male admitted 03/06/16 for near syncope found to suspected Upper GI bleed with history of CAD s/p PCI in August 2016, HTN, CHF, NIDDM & dementia. 87 yo male with pmh of DM, CAD, CABG who presented to the ED with complaint of dizziness and near syncopy while at the ice cream shop at [facility]. He reported having black stools earlier this week. He denied any fevers, chills , shortness of breath, or chest pain. In the ED he was noted to have HR of 111 in sinus tach and BP of 96/95. He was given IV fluids and started on a protonix drip. Stool occult was positive. Patient was admitted for near syncope secondary to suspected Upper GI bleed. He was continued on Protonix IV therapy and his plavix was initially held. Dr. Perez, surgeon, was consulted and recommended the addition of Carafate as well as to hold Plavix until stools normalized. He recommended follow-up with him for outpatient EGD and colonscopy when symptoms resolved. Plavix was continued shortly after admission and stools had returned to normal. Diet was slowly increased as patient improved. Patient did have acute on chronic kidney disease which improved with IVF hydration. [facility] 41 [facility] 10/04/16 and 32 on 10/29/16 additional [place] labs were negative for microalbuminuria on . While on telemetry patient did have some episodes of what appeared to be torsades. Magnesium was given and cardiology was consult. Dr. Sosa, limousine and hearse upholsterer did review the rhythm strips and concluded that the torsades was most likely artifact. Patient remained on telemetry throughout his stay and did well. On the fifth day of admission patient continued to do well with stabilization of Hgb and was discharged with a prescription for Carafate as well as instructions to continue his pantoprazole and follow-up appointments were made with his PCP as well as Dr. Perez surgeon. Patient was instructed to come back to the ED if he had any return of his symptoms. - General Info Date of Service: 03/10/17 Admission Dx/Problem (Free Text: Admission Diagnosis/Problem Admission Diagnosis/Problem Melena, anemia Subjective Update: Doing well. Had normal bowel movement last night. No pain, nausea, vomiting, diarrhea, sob, chest pain, or palpitations. Would like to be discharged today. - Review of Systems General: Reports: Fatigue. Denies: Fever, Weakness, Malaise HEENT: Denies: Dysphasia, Headaches, Visual Changes Pulmonary: Denies: Shortness of Breath, Pleuritic Chest Pain, Cough, Hemoptysis Cardiovascular: Denies: Chest Pain, Palpitations, Edema Gastrointestinal: Denies: Abdominal Pain, Diarrhea, Hematochezia, Melena, Nausea , Vomiting Genitourinary: Denies: Dysuria, Hematuria Musculoskeletal: Denies: Neck Pain, Foot Pain Skin: Denies: Cyanosis Neurological: Denies: Confusion, Dizziness, Headache - Patient Data Vitals - Most Recent: Last Vital Signs Temp 98.1 F 03/10/17 08:00 Pulse 74 03/10/17 08:00 Resp 18 03/10/17 08:00 BP 131/61 03/10/17 08:00 Pulse Ox 95 03/10/17 08:00 Weight - Most Recent: 83.915 kg I&O - Last 24 hours: Intake & Output 03/09/17 03/10/17 03/10/17 22:59 06:59 14:59 Intake Total 480 500 Output Total 550 1600 Balance -70 -1100 Lab Results - Last 24 hrs: Laboratory Results - last 24 hr 03/09/17 03/09/1718 Range/Units 16:40 21:27 05:43 WBC 5.65 (4.0-11.0) K/uL RBC 3.24 L (4.50-5.90) M/uL Hgb 10.1 L (13.0-17.0) g/dL Hct 29.8 L (38.0-50.0) % MCV 92.0 (80.0-98.0) fL MCH 31.2 (27.0-32.0) pg MCHC 33.9 (31.0-37.0) g/dL RDW Std Deviation 44.3 (28.0-62.0) fl RDW Coeff of Mabel 13 (11.0-15.0) % Plt Count 225 (150-400) K/uL MPV 10.00 (7.40-12.00) fL Neut % (Auto) 63.5 (48.0-80.0) % Lymph % (Auto) 20.2 (16.0-40.0) % [place] % (Auto) 13.1 (0.0-15.0) % Eos % (Auto) 3.0 (0.0-7.0) % Baso % (Auto) 0.2 (0.0-1.5) % Neut # (Auto) 3.6 (1.4-5.7) K/uL Lymph # (Auto) 1.1 (0.6-2.4) K/uL [place] # (Auto) 0.7 (0.0-0.8) K/uL Eos # (Auto) 0.2 (0.0-0.7) K/uL Baso # (Auto) 0.0 (0.0-0.1) K/uL Nucleated RBC % 0.0 /100WBC Nucleated RBCs # 0 K/uL Sodium (136-146) mmol/L Potassium (3.5-5.1) mmol/L Chloride (98-110) mmol/L Carbon Dioxide (21-31) mmol/L BUN (6.0-23.0) mg/dL Creatinine (0.6-1.5) mg/dL Est Cr Clr Drug Dosing mL/min Estimated GFR (MDRD) ml/min Glucose (60-110) mg/dL POC Glucose 114 H 132 H (60-110) mg/dL Calcium (8.8-10.8) mg/dL 03/10/17 03/10/17 Range/Units 05:43 06:22 WBC (4.0-11.0) K/uL RBC (4.50-5.90) M/uL Hgb (13.0-17.0) g/dL Hct (38.0-50.0) % MCV (80.0-98.0) fL MCH (27.0-32.0) pg MCHC (31.0-37.0) g/dL RDW Std Deviation (28.0-62.0) fl RDW Coeff of Mabel (11.0-15.0) % Plt Count (150-400) K/uL MPV (7.40-12.00) fL Neut % (Auto) (48.0-80.0) % Lymph % (Auto) (16.0-40.0) % [place] % (Auto) (0.0-15.0) % Eos % (Auto) (0.0-7.0) % Baso % (Auto) (0.0-1.5) % Neut # (Auto) (1.4-5.7) K/uL Lymph # (Auto) (0.6-2.4) K/uL [place] # (Auto) (0.0-0.8) K/uL Eos # (Auto) (0.0-0.7) K/uL Baso # (Auto) (0.0-0.1) K/uL Nucleated RBC % /100WBC Nucleated RBCs # K/uL Sodium 136 (136-146) mmol/L Potassium 3.6 (3.5-5.1) mmol/L Chloride 111 H (98-110) mmol/L Carbon Dioxide 17 L (21-31) mmol/L BUN 22 (6.0-23.0) mg/dL Creatinine 1.8 H (0.6-1.5) mg/dL Est Cr Clr Drug Dosing 30.09 mL/min Estimated GFR (MDRD) 35.8 ml/min Glucose 100 (60-110) mg/dL POC Glucose 106 (60-110) mg/dL Calcium 8.4 L (8.8-10.8) mg/dL Med Orders - Current: Current Medications Atorvastatin Calcium (Lipitor) 40 mg PO BEDTIME [facility] Last Admin: 03/09/17 21:28 Dose: 40 mg Carbidopa/Levodopa (Sinemet 25-100 Mg) 1 tab PO QID [facility] Last Admin: 03/10/17 11:09 Dose: 1 tab Citalopram Hydrobromide (Celexa) 20 mg PO DAILY [facility] Last Admin: 03/10/17 08:31 Dose: 20 mg Clopidogrel Bisulfate (Plavix) 75 mg PO DAILY [facility] Last Admin: 03/10/17 08:31 Dose: 75 mg Insulin Aspart (Novolog) 0 unit SUBCUT ACBED [facility] PRN Reason: Protocol Last Admin: 03/10/17 11:21 Dose: Not Given Levothyroxine Sodium (Levothyroxine) 25 mcg PO ACBREAKFAST [facility] Last Admin: 03/10/17 06:43 Dose: 25 mcg Pantoprazole Sodium (Protonix Iv) 80 mg IVPUSH BID [facility] Last Admin: 03/10/17 08:33 Dose: 80 mg Sodium Chloride (Saline Flush) 10 ml FLUSH ASDIRECTED PRN PRN Reason: Keep Vein Open Sodium Chloride (Saline Flush) 2.5 ml FLUSH ASDIRECTED PRN PRN Reason: Keep Vein Open Sucralfate (Carafate) 1 gm PO Q6H [facility] Last Admin: 03/10/17 06:43 Dose: 1 gm Discontinued Medications Calcium Carbonate/Glycine (Tums) 1,000 mg PO ONETIME ONE Stop: 03/09/17 09:08 Last Admin: 03/09/17 09:30 Dose: 1,000 mg Clopidogrel Bisulfate (Plavix) 75 mg PO DAILY [facility] Last Admin: 03/08/17 10:47 Dose: 75 mg Sodium Chloride (Normal Saline) 1,000 mls @ 999 mls/hr IV STAT ONE Stop: 03/06/17 17:28 Last Admin: 03/06/17 16:15 Dose: 999 mls/hr Pantoprazole Sodium 80 mg/ (Sodium Chloride) 100 mls @ 10 mls/hr IV .Continuous [facility] Last Admin: 03/07/17 06:14 Dose: 10 mls/hr Sodium Chloride (Normal Saline) 1,000 mls @ 125 mls/hr IV ASDIRECTED [facility] Last Admin: 03/09/17 02:40 Dose: 125 mls/hr Magnesium Sulfate 4 gm/ Premix 100 mls @ 50 mls/hr IV ONETIME ONE Stop: 03/07/17 00:18 Last Admin: 03/06/17 22:49 Dose: 50 mls/hr Pantoprazole Sodium 80 mg/ (Sodium Chloride) 100 mls @ 10 mls/hr IV Q10H [facility] Last Admin: 03/07/17 18:19 Dose: Not Given Insulin Aspart (Novolog) 0 unit SUBCUT Q6H [facility] PRN Reason: Protocol Last Admin: 03/07/17 02:15 Dose: Not Given Insulin Aspart (Novolog) 0 unit SUBCUT Q6H [facility] PRN Reason: Protocol Last Admin: 03/09/17 11:05 Dose: Not Given Ondansetron HCl (Zofran) 4 mg IVPUSH Q4H PRN PRN Reason: Nausea Pantoprazole Sodium (Protonix Iv) 80 mg IVPUSH .BOLUS ONE Stop: 03/06/17 17:43 Last Admin: 03/06/17 19:07 Dose: 80 mg Pantoprazole Sodium (Protonix Iv) 40 mg IVPUSH BID [facility] - Exam Quality Assessment: Reports: DVT Prophylaxis General: Reports: Alert, Oriented, Cooperative HEENT: Reports: Pupils Equal, Pupils Reactive, EOMI, Mucous Membr. Moist/[place] Neck: Reports: Supple, Trachea Midline Lungs: Reports: Clear to Auscultation, Normal Respiratory Effort Cardiovascular: Reports: Regular Rate, Regular Rhythm, No Murmurs GI/Abdominal Exam: Normal Bowel Sounds, Soft, Non-Tender, No Organomegaly, No Distention Back Exam: Reports: Normal Inspection Extremities: Normal Inspection, Non-Tender, No Pedal Edema, Normal Capillary Refill Skin: Reports: Warm, Dry, Intact Wound/Incisions: Reports: Healing Well Neurological: Reports: No New Focal Deficit Psy/Mental Status: Reports: Alert, Normal Affect, Normal Mood *Q Meaningful Use (DIS) - VTE *Q VTE Criteria *Q: - Stroke *Q Stroke Criteria *Q: - AMI *Q AMI Criteria *Q:
== END 2017-03-10 13:25 | disposition home or self-care (01) | DRG 378 ==
LOC: MW.ED 16:10 → MW.MS 18:04
PROVIDERS: ADMIT Internal Medicine; ATTEND Internal Medicine
DX: R55 Syncope and collapse (principal); K92.2 Gastrointestinal hemorrhage, unspecified; I95.9 Hypotension, unspecified; I10 Essential (primary) hypertension; D62 Acute posthemorrhagic anemia; I13.0 Hypertensive heart and chronic kidney disease with heart failure and stage 1 through stage 4 chronic kidney disease, or unspecified chronic kidney disease; G20 Parkinson's disease; N17.9 Acute kidney failure, unspecified; R19.5 Other fecal abnormalities; E87.5 Hyperkalemia; I25.10 Atherosclerotic heart disease of native coronary artery without angina pectoris; I50.9 Heart failure, unspecified; F03.90 Unspecified dementia, unspecified severity, without behavioral disturbance, psychotic disturbance, mood disturbance, and anxiety; E11.22 Type 2 diabetes mellitus with diabetic chronic kidney disease; N18.9 Chronic kidney disease, unspecified; Z79.899 Other long term (current) drug therapy; Z95.1 Presence of aortocoronary bypass graft
CPT/HCPCS: 36415; 70450; 71045; 80053; 83735; 84484; 85025; 85610; 86850; 86900; 86901; 87804 ×2; 93005; 96361; 99285; J7040; 80048; 81001; 82272; 82962; 85014; 85018; 85027; 96360; 96374; 96375; A9270-GY; C9113; J1815-GY; J3475; J7030

== ENCOUNTER 2017-03-13 19:27 | Emergency (ER) | payer MEDICARE, OTHER ==
--- NOTE | 2017-03-13 19:56 | EDM.PDOC ---
<Selina Sánchez - Last Filed: 03/13/17 21:12> ED HPI GENERAL MEDICAL PROBLEM - General Stated Complaint: PT NOSE BLEEDING Time Seen by Provider: 03/13/17 19:47 Source of Information: Reports: Patient History Limitations: Reports: No Limitations - History of Present Illness INITIAL COMMENTS - FREE TEXT/NARRATIVE: HISTORY AND PHYSICAL: History of present illness: [Patient comes to the emergency room complaining of nosebleeds since 2 PM today. Has mostly been intermittent but has had an episode of heavier bleeding which he got to stop by placing strong pressure with his finger for quite a while. Bleeding stopped about one hour ago. He was hospitalized on March 06 for GI bleed and was discharged to home on March 10. Patient is unsure if he has been taking his Plavix or if that has been held. His medications are set up by the local pharmacy. Patient feels very frustrated and requests that any measure be taken to stop the bleeding. He is afraid to fall asleep in his nose is bleeding as he is afraid that he will bleed out during the night. Review of systems: As per history of present illness and below otherwise all systems reviewed and negative. Past medical history: As per history of present illness and as reviewed below otherwise noncontributory. Surgical history: As per history of present illness and as reviewed below otherwise noncontributory. Social history: No reported history of drug or alcohol abuse. Family history: As per history of present illness and as reviewed below otherwise noncontributory. Physical exam: HEENT: Atraumatic, normocephalic. Oral mucous membranes are pink and moist. Right nare is clear. Left there shows a moderate amount of blood in the canal with some clotting and scabbing present anteriorly. Extremities: Atraumatic. Neurovascular unremarkable. Neuro: Awake, alert, oriented. Motor and sensory unremarkable throughout. Exam nonfocal. Therapeutics: cephalexin 500mg po x 1 Diagnostics: [CBC, CMP, PT/INR] Impression: [epistaxis] Plan: [Rhino rocket is applied to left nare without difficulty. 13 mL of air is injected into the balloon. Patient tolerated procedure well. He is given his first dose of cephalexin 500 mg 1 tablet in the ER. He is given a prescription for cephalexin 500 mg #30 one by mouth 3 times a day 0 refills.] Definitive disposition and diagnosis as appropriate pending reevaluation and review of above. - Related Data Allergies Allergy/AdvReac Type Severity Reaction Status Date / Time No Known Allergies Allergy Verified 03/13/17 19:52 Home Meds: Home Meds Atenolol 25 mg PO DAILY 03/06/17 [History] Carbidopa/Levodopa [Carbidopa-Levodopa 25-100 Tab] 1 tab PO QID 03/06/17 [ History] Citalopram [Celexa] 20 mg PO DAILY 03/06/17 [History] Clopidogrel [Plavix] 75 mg PO DAILY 03/06/17 [History] Fish Oil/[place]-3 Fatty Acids [Fish Oil 1,000 MG] 1 gm PO BID 03/06/17 [History] Gemfibrozil 600 mg PO BID 03/06/17 [History] Hydrochlorothiazide 25 mg PO DAILY 03/06/17 [History] Levothyroxine 25 mcg PO ACBREAKFAST 03/06/17 [History] Losartan [Cozaar] 25 mg PO DAILY 03/06/17 [History] Methylcellulose [Fiber] 500 mg PO DAILY 03/06/17 [History] Nitroglycerin 0.4 mg SL Q5M PRN MDD 3 03/06/17 [History] Pantoprazole [ProTONIX] 40 mg PO ACBREAKFAST 03/06/17 [History] Potassium Chloride [Klor-Con M20] 20 meq PO DAILY 03/06/17 [History] atorvaSTATin [Lipitor] 40 mg PO BEDTIME 03/06/17 [History] metFORMIN HCl [Metformin HCl ER] 500 mg PO BID 03/06/17 [History] Sucralfate [Carafate] 1 gm PO Q6H #28 cup 03/10/17 [Rx] Past Medical History - Past Health History Medical/Surgical History: Denies Medical/Surgical History HEENT History: Reports: Impaired Vision Other HEENT History: wears glasses Cardiovascular History: Reports: CAD, Stents Neurological History: Reports: Parkinson's Endocrine/Metabolic History: Reports: Diabetes, Type II Oncologic (Cancer) History: Reports: Other (See Below) Other Oncologic History: Hx: Skin Cancer - Infectious Disease History Infectious Disease History: Reports: Measles, Mumps - Past Surgical History Musculoskeletal Surgical History: Reports: Knee Replacement, Other (See Below) Other Musculoskeletal Surgeries/Procedures:: Right TKA Social & Family History - Family History Family Medical History: Noncontributory - Tobacco Use Smoking Status *Q: Former Smoker Years of Tobacco use: 20 Packs/Tins Daily: 1 Used Tobacco, but Quit: Yes Month Tobacco Last Used: 40 years ago Second Hand Smoke Exposure: No - Caffeine Use Caffeine Use: Reports: Coffee - Recreational Drug Use Recreational Drug Use: No ED ROS GENERAL - Review of Systems Review Of Systems: ROS reveals no pertinent complaints other than HPI. ED EXAM, GENERAL - Physical Exam Exam: See Below Course - Vital Signs Last Recorded V/S: Last Vital Signs Temp 36.4 C 03/13/17 19:48 Pulse 80 03/13/17 21:25 Resp 20 03/13/17 21:25 BP 140/90 03/13/17 21:25 Pulse Ox 96 03/13/17 21:25 - Orders/Labs/Meds Labs: Laboratory Tests 03/13/17 03/13/17 03/13/17 Range/Units 20:28 20:28 20:28 WBC 7.62 (4.0-11.0) K/uL RBC 3.36 L (4.50-5.90) M/uL Hgb 10.4 L (13.0-17.0) g/dL Hct 31.3 L (38.0-50.0) % MCV 93.2 (80.0-98.0) fL MCH 31.0 (27.0-32.0) pg MCHC 33.2 (31.0-37.0) g/dL RDW Std Deviation 45.9 (28.0-62.0) fl RDW Coeff of Mabel 14 (11.0-15.0) % Plt Count 262 (150-400) K/uL MPV 10.20 (7.40-12.00) fL Neut % (Auto) 67.1 (48.0-80.0) % Lymph % (Auto) 20.1 (16.0-40.0) % Lawrence % (Auto) 10.9 (0.0-15.0) % Eos % (Auto) 1.6 (0.0-7.0) % Baso % (Auto) 0.3 (0.0-1.5) % Neut # (Auto) 5.1 (1.4-5.7) K/uL Lymph # (Auto) 1.5 (0.6-2.4) K/uL Lawrence # (Auto) 0.8 (0.0-0.8) K/uL Eos # (Auto) 0.1 (0.0-0.7) K/uL Baso # (Auto) 0.0 (0.0-0.1) K/uL Nucleated RBC % 0.0 /100WBC Nucleated RBCs # 0 K/uL INR 1.03 (0.86-1.11) Sodium 139 (136-146) mmol/L Potassium 4.0 (3.5-5.1) mmol/L Chloride 108 (98-110) mmol/L Carbon Dioxide 22 (21-31) mmol/L BUN 23 (6.0-23.0) mg/dL Creatinine 1.9 H (0.6-1.5) mg/dL Est Cr Clr Drug Dosing TNP Estimated GFR (MDRD) 33.6 ml/min Glucose 143 H (60-110) mg/dL Calcium 8.9 (8.8-10.8) mg/dL Total Bilirubin 0.3 (0.1-1.5) mg/dL AST 12 (5-40) IU/L ALT 8 (8-54) IU/L Alkaline Phosphatase 102 (40-150) Total Protein 6.5 (6.0-8.0) g/dL Albumin 3.9 (3.4-4.8) g/dL Globulin 2.6 (2.0-3.5) g/dL Albumin/Globulin Ratio 1.5 (1.3-2.8) Meds: Medications Discontinued Medications Generic Name Dose Route Start Last Admin Trade Name Freq PRN Reason Stop Dose Admin Cephalexin 500 mg 03/13/17 21:00 03/13/17 21:24 Keflex PO 03/13/17 21:01 500 mg ONETIME ONE Administration Departure - Departure Time of Disposition: 21:00 Disposition: Home, Self-Care 01 Condition: Good Clinical Impression: Epistaxis - Discharge Information Instructions: Nosebleed, [id number] Referrals: PCP,None [Primary Care Provider] - Forms: ED Department Discharge Additional Instructions: The following information is given to patients seen in the emergency department who are being discharged to home. This information is to outline your options for follow-up care. We provide all patients seen in our emergency department with a follow-up referral. The need for follow-up, as well as the timing and circumstances, are variable depending upon the specifics of your emergency department visit. If you don't have a primary care physician on staff, we will provide you with a referral. We always advise you to contact your personal physician following an emergency department visit to inform them of the circumstance of the visit and for follow-up with them and/or the need for any referrals to a consulting specialist. The emergency department will also refer you to a specialist when appropriate. This referral assures that you have the opportunity for follow-up care with a specialist. All of these measure are taken in an effort to provide you with optimal care, which includes your follow-up. Under all circumstances we always encourage you to contact your private physician who remains a resource for coordinating your care. When calling for follow-up care, please make the office aware that this follow-up is from your recent emergency room visit. If for any reason you are refused follow-up, please contact the [facility] emergency department at and asked to speak to the emergency department charge nurse. [facility] Specialty care- ENT [address] [place] [id number] Return to the ER on Friday to have nasal packing removed. Return to ER as needed as discussed. Fill prescription at local pharmacy tomorrow. <Keshia Posadas - Last Filed: 03/14/17 03:56> ED HPI GENERAL MEDICAL PROBLEM - History of Present Illness INITIAL COMMENTS - FREE TEXT/NARRATIVE: Please note that Dr. Quinn our ENT physician was contacted about this case. She is aware that we will be packing the nose and will remove it in 2 days and she will be available for follow-up and be available tomorrow if the patient returns with problems.
[2017-03-13 21:00] LABS: CHLORIDE,CL 108 mmol/L (98-110); SODIUM,NA 139 mmol/L (136-146)
[2017-03-13] MEDS ORDERED: Cephalexin 500 MG Cap PO ONE (21:00)
== END 2017-03-13 21:26 | disposition home or self-care (01) ==
LOC: MW.ED 19:27
DX: R04.0 Epistaxis (principal); E11.9 Type 2 diabetes mellitus without complications; I25.10 Atherosclerotic heart disease of native coronary artery without angina pectoris; G20 Parkinson's disease; Z79.899 Other long term (current) drug therapy; Z87.891 Personal history of nicotine dependence; Z79.84 Long term (current) use of oral hypoglycemic drugs; Z95.5 Presence of coronary angioplasty implant and graft
CPT/HCPCS: 30901; 36415; 80053; 85025; 85610; 99283; A9270

== ENCOUNTER 2017-03-15 08:34 | Emergency (ER) | payer MEDICARE, OTHER ==
--- NOTE | 2017-03-15 09:18 | EDM.PDOC ---
ED HPI GENERAL MEDICAL PROBLEM - General Chief Complaint: ENT Problem Stated Complaint: NOSE BLEED Time Seen by Provider: 03/15/17 09:00 Source of Information: Reports: Patient History Limitations: Reports: No Limitations - History of Present Illness INITIAL COMMENTS - FREE TEXT/NARRATIVE: History of present illness: []Patient was seen here on March 13 for epistaxis and packing was placed. He was told to return this morning to have the packing removed. Has not had any residual bleeding and has no complaints at this time. Review of systems: As per history of present illness and below otherwise all systems reviewed and negative. Past medical history: As per history of present illness and as reviewed below otherwise noncontributory. Surgical history: As per history of present illness and as reviewed below otherwise noncontributory. Social history: No reported history of drug or alcohol abuse. Family history: As per history of present illness and as reviewed below otherwise noncontributory. Physical exam: General: Well developed, well nourished in NAD HEENT: Atraumatic, normocephalic, pupils reactive, negative for conjunctival pallor or scleral icterus, mucous membranes moist, throat clear, neck supple, nontender, trachea midline. Lungs: Clear to auscultation, breath sounds equal bilaterally, chest nontender. Heart: S1S2, regular, negative for clicks, rubs, or JVD. Abdomen: Soft, nondistended, nontender. Negative for masses or hepatosplenomegaly. Negative for costovertebral tenderness. Pelvis: Stable nontender. Genitourinary: Deferred. Rectal: Deferred. Extremities: Atraumatic, negative for cords or calf pain. Neurovascular unremarkable. Neuro: Awake, alert, oriented. Cranial nerves II through XII unremarkable. Cerebellum unremarkable. Motor and sensory unremarkable throughout. Exam nonfocal. Diagnostics: [] Therapeutics: []Nasal Rhino Rocket was removed Impression: []Removal of nasal packing Plan: []Follow-up with ENT as needed Definitive disposition and diagnosis as appropriate pending reevaluation and review of above. - Related Data Allergies Allergy/AdvReac Type Severity Reaction Status Date / Time No Known Allergies Allergy Verified 03/15/17 08:53 Home Meds: Home Meds Atenolol 25 mg PO DAILY 03/06/17 [History] Carbidopa/Levodopa [Carbidopa-Levodopa 25-100 Tab] 1 tab PO QID 03/06/17 [ History] Citalopram [Celexa] 20 mg PO DAILY 03/06/17 [History] Clopidogrel [Plavix] 75 mg PO DAILY 03/06/17 [History] Fish Oil/[place]-3 Fatty Acids [Fish Oil 1,000 MG] 1 gm PO BID 03/06/17 [History] Gemfibrozil 600 mg PO BID 03/06/17 [History] Hydrochlorothiazide 25 mg PO DAILY 03/06/17 [History] Levothyroxine 25 mcg PO ACBREAKFAST 03/06/17 [History] Losartan [Cozaar] 25 mg PO DAILY 03/06/17 [History] Methylcellulose [Fiber] 500 mg PO DAILY 03/06/17 [History] Nitroglycerin 0.4 mg SL Q5M PRN MDD 3 03/06/17 [History] Pantoprazole [ProTONIX] 40 mg PO ACBREAKFAST 03/06/17 [History] Potassium Chloride [Klor-Con M20] 20 meq PO DAILY 03/06/17 [History] atorvaSTATin [Lipitor] 40 mg PO BEDTIME 03/06/17 [History] metFORMIN HCl [Metformin HCl ER] 500 mg PO BID 03/06/17 [History] Sucralfate [Carafate] 1 gm PO Q6H #28 cup 03/10/17 [Rx] Past Medical History - Past Health History Medical/Surgical History: Denies Medical/Surgical History HEENT History: Reports: Impaired Vision Other HEENT History: wears glasses Cardiovascular History: Reports: CAD, Stents Neurological History: Reports: Parkinson's Endocrine/Metabolic History: Reports: Diabetes, Type II Oncologic (Cancer) History: Reports: Other (See Below) Other Oncologic History: Hx: Skin Cancer - Infectious Disease History Infectious Disease History: Reports: Measles, Mumps - Past Surgical History Musculoskeletal Surgical History: Reports: Knee Replacement, Other (See Below) Other Musculoskeletal Surgeries/Procedures:: Right TKA Social & Family History - Family History Family Medical History: Noncontributory - Tobacco Use Smoking Status *Q: Never Smoker Years of Tobacco use: 20 Packs/Tins Daily: 1 Used Tobacco, but Quit: Yes Month Tobacco Last Used: 40 years ago Second Hand Smoke Exposure: No - Caffeine Use Caffeine Use: Reports: Coffee - Recreational Drug Use Recreational Drug Use: No ED ROS GENERAL - Review of Systems Review Of Systems: See Below (See history of present illness) ED EXAM, SKIN/RASH Exam: See Below (See history of present illness) Course - Vital Signs Last Recorded V/S: Last Vital Signs Temp 97.4 F 03/15/17 08:55 Pulse 67 03/15/17 08:55 Resp 18 03/15/17 08:55 BP 131/96 H 03/15/17 08:55 Pulse Ox 95 03/15/17 08:55 Departure - Departure Time of Disposition: :17 Disposition: Home, Self-Care 01 Condition: Good Clinical Impression: Encounter for removal of nasal packing - Discharge Information Referrals: Sindi Hobbs MD [Resident] - Additional Instructions: The following information is given to patients seen in the emergency department who are being discharged to home. This information is to outline your options for follow-up care. We provide all patients seen in our emergency department with a follow-up referral. The need for follow-up, as well as the timing and circumstances, are variable depending upon the specifics of your emergency department visit. If you don't have a primary care physician on staff, we will provide you with a referral. We always advise you to contact your personal physician following an emergency department visit to inform them of the circumstance of the visit and for follow-up with them and/or the need for any referrals to a consulting specialist. The emergency department will also refer you to a specialist when appropriate. This referral assures that you have the opportunity for follow-up care with a specialist. All of these measure are taken in an effort to provide you with optimal care, which includes your follow-up. Under all circumstances we always encourage you to contact your private physician who remains a resource for coordinating your care. When calling for follow-up care, please make the office aware that this follow-up is from your recent emergency room visit. If for any reason you are refused follow-up, please contact the [facility] Emergency Department at and asked to speak to the emergency department charge nurse. Follow-up with ENT as needed, no blowing nose, sucking through a straw, extending over her heavy lifting for the next 3 days..
== END 2017-03-15 09:35 | disposition home or self-care (01) ==
LOC: MW.ED 08:34
DX: Z48.00 Encounter for change or removal of nonsurgical wound dressing (principal); I25.10 Atherosclerotic heart disease of native coronary artery without angina pectoris; E11.9 Type 2 diabetes mellitus without complications; Z95.5 Presence of coronary angioplasty implant and graft; Z79.84 Long term (current) use of oral hypoglycemic drugs; Z79.02 Long term (current) use of antithrombotics/antiplatelets; Z79.899 Other long term (current) drug therapy
CPT/HCPCS: 99282